=== PATIENT | female | born 1935 | race Two or more races ===

== ENCOUNTER 2019-10-21 19:28 | Inpatient (IN) | payer SELFPAY ==
[~2019-10-21] VITALS: Ht 162.6 cm; Wt 69.9 kg
[2019-10-21 21:40] LABS: BASO # 0.2 x10^3/uL (0.0-0.2); BASO % 2 % (0-3); EOS # 0.1 x10^3/uL (0.0-0.7); EOS % 1 % (0-3); LYMPH # 1.7 x10^3/uL (1.0-4.8); LYMPH % 19 % (24-48); MEAN CORPUSCULAR HEMOGLOBIN 23 pg (25-35); MEAN CORPUSCULAR HGB CONC 30 g/dL (31-37); MEAN CORPUSCULAR VOLUME 78 fL (79-100); MONO # 0.7 x10^3/uL (0.0-1.1); MONO % 7 % (0-9); NEUT # 6.6 x10^3/uL (1.8-7.7); NEUT % 71 % (31-73); PLATELET COUNT 495 x10^3/uL (140-400); RED BLOOD COUNT 1.96 x10^6/uL (3.50-5.40); RED CELL DISTRIBUTION WIDTH 22.6 % (11.5-14.5); WHITE BLOOD COUNT 9.3 x10^3/uL (4.0-11.0)
[2019-10-21 21:44] LABS: HEMATOCRIT 15.2 % (36.0-47.0); HEMOGLOBIN 4.6 g/dL (12.0-15.5)
[2019-10-21 21:48] LABS: CREATININE 1.8 mg/dL (0.6-1.0); GFR 26.7; POTASSIUM 5.8 mmol/L (3.5-5.1)
[2019-10-21 21:56] LABS: ALBUMIN 2.7 g/dL (3.4-5.0); TOTAL BILIRUBIN 0.5 mg/dL (0.2-1.0); TOTAL PROTEIN 5.4 g/dL (6.4-8.2)
[2019-10-21] MEDS ORDERED: IV NORMAL SALINE 1000ML BAG 1,000 ML IV SCH (22:15)
[2019-10-21] MEDS ORDERED: DEXTROSE 50% 25 GM / 50ML DISP.SYRIN. IV ONE (22:30)
[2019-10-21] MEDS ORDERED: SODIUM BICARB ADULT 8.4% 50 MEQ/50 ML DISP.SYRIN. IV ONE (22:30)
[2019-10-21] MEDS ORDERED: INSULIN REGULAR 100 UNIT/ML 3ML VIAL. IV ONE (22:30)
[2019-10-21] MEDS ORDERED: CALCIUM GLUCONATE 1,000 MG/10 ML VIAL. IVP ONE (22:30)
[2019-10-21 23:15] VITALS: BP 74/52
[2019-10-21 23:21] LABS: ANISOCYTOSIS MOD; HYPOCHROMIA SLIGHT; OVALOCYTES OCC; PLT ESTIMATE INCREASED (ADEQUATE); POLYCHROMASIA MOD; SCHISTOCYTES OCC
[2019-10-21 23:22] LABS: BURR CELLS OCC
[2019-10-21] MEDS ORDERED: PANTOPRAZOLE IV PUSH 40 MG VIAL. IVP ONE (23:30)
[2019-10-21] MEDS ORDERED: MORPHINE SULFATE 2 MG/ML VIAL. ONE (23:39)
[2019-10-21 23:48] LABS: FECAL OB PT NEGATIVE (NEG)
[2019-10-21] MEDS ORDERED: MORPHINE SULFATE 2 MG/ML VIAL. IV ONE (23:55)
[2019-10-22] VITALS (33 sets, daily range): BP systolic 81–129; BP diastolic 42–72
--- NOTE | 2019-10-22 00:27 | PHYS DOC ---
Past Medical History Past Medical History: Hypertension Additional Past Medical Histor: pacemaker Additional Past Surgical Histo: pacemaker last year Alcohol Use: None Adult General Chief Complaint Chief Complaint: ANEMIA HPI HPI Patient presents to the ER with complaints of "anemia." Patient has a history of upper GI bleed with ulceration in [place]. Patient denied any acute complaints aside from generalized weakness. She denies abdominal pain on exam. Patient states she has had some dark stools. Attempted to get more information from patient however she was unable to talk loud enough for the interpretor to h elp over the blue phone. Patient has had no nausea or vomiting. Discussed with family via medication care manager phone - they reiterated ulcer and GI bleed. Limited ROS given non-participation. All other ROS negative unless documented in HPI Review of Systems Review of Systems See Above Current Medications Current Medications Current Medications Medications (Trade) Dose Ordered Sig/Annabella Start Time Stop Time Status Last Admin Dose Admin Calcium Gluconate (Calcium Gluconate) 1,000 mg 1X ONCE 10/21/19 22:30 10/21/19 22:31 DC Dextrose (Dextrose 50%-Water Syringe) 25 gm 1X ONCE 10/21/19 22:30 10/21/19 22:31 DC Insulin Human Regular (HumuLIN R VIAL) 10 unit 1X ONCE 10/21/19 22:30 10/21/19 22:31 DC Morphine Sulfate (Morphine Sulfate) 2 mg STK-MED ONCE 10/21/19 23:39 10/21/19 23:40 DC Pantoprazole Sodium (PROTONIX VIAL for IV PUSH) 80 mg 1X ONCE 10/21/19 23:30 10/21/19 23:34 DC 10/21/19 00:15 80 MG Pantoprazole Sodium 80 mg/ Sodium Chloride 100 ml @ 10 mls/hr Q10H 10/21/19 23:30 10/22/19 00:30 10 MLS/HR Sodium Bicarbonate (Sodium Bicarb Adult 8.4% Syr) 50 meq 1X ONCE 10/21/19 22:30 10/21/19 22:31 DC Sodium Chloride 1,000 ml @ 1,000 mls/hr Q1H 10/21/19 22:15 10/21/19 23:14 DC Allergies Allergies Allergies Coded Allergies Type Severity Reaction Last Updated Verified No Known Drug Allergies 10/21/19 No Physical Exam Physical Exam See Above Constitutional: Decreased LOC, mild distress[] HENT: Normocephalic, atraumatic, bilateral external ears normal, oropharynx m oist, no oral exudates, nose normal. [] Eyes: PERRLA, EOMI, conjunctiva normal, no discharge. [] Cardiovascular: irregular/irregular Lungs & Thorax: Bilateral breath sounds clear to auscultation [] Abdomen: Bowel sounds normal, soft, no tenderness, no masses, no pulsatile masses. [] Skin: Warm, dry, no erythema, no rash, pale Back: No tenderness, no CVA tenderness. [] Extremities: No tenderness, no edema. [] Neurologic: Alert and oriented X 3, no focal deficits noted. [] Psychologic: Affect normal, judgement normal, mood normal. [] Current Patient Data Vital Signs Vital Signs Date Time Temp Pulse Resp B/P (MAP) Pulse Ox O2 Delivery O2 Flow Rate FiO2 10/21/19 22:00 97.7 48 16 78/56 (63) 96 Room Air 97.7 Lab Values Laboratory Tests Test 10/21/19 21:30 10/21/19 23:30 White Blood Count 9.3 x10^3/uL (4.0-11.0) Red Blood Count 1.96 x10^6/uL (3.50-5.40) L Hemoglobin 4.6 g/dL (12.0-15.5) *L Hematocrit 15.2 % (36.0-47.0) *L Mean Corpuscular Volume 78 fL (79-100) L Mean Corpuscular Hemoglobin 23 pg (25-35) L Mean Corpuscular Hemoglobin Concent 30 g/dL (31-37) L Red Cell Distribution Width 22.6 % (11.5-14.5) H Platelet Count 495 x10^3/uL (140-400) H Neutrophils (%) (Auto) 71 % (31-73) Lymphocytes (%) (Auto) 19 % (24-48) L Monocytes (%) (Auto) 7 % (0-9) Eosinophils (%) (Auto) 1 % (0-3) Basophils (%) (Auto) 2 % (0-3) Neutrophils # (Auto) 6.6 x10^3/uL (1.8-7.7) Lymphocytes # (Auto) 1.7 x10^3/uL (1.0-4.8) Monocytes # (Auto) 0.7 x10^3/uL (0.0-1.1) Eosinophils # (Auto) 0.1 x10^3/uL (0.0-0.7) Basophils # (Auto) 0.2 x10^3/uL (0.0-0.2) Platelet Estimate Increased (ADEQUATE) Polychromasia Mod Hypochromasia Slight Anisocytosis Mod Ovalocytes Occ Mary Cells Occ Schistocytes Occ Sodium Level 132 mmol/L (136-145) L Potassium Level 5.8 mmol/L (3.5-5.1) H Chloride Level 102 mmol/L (98-107) Carbon Dioxide Level 15 mmol/L (21-32) L Anion Gap 15 (6-14) H Blood Urea Nitrogen 46 mg/dL (7-20) H Creatinine 1.8 mg/dL (0.6-1.0) H Estimated GFR (Cockcroft-Gault) 26.7 BUN/Creatinine Ratio 26 (6-20) H Glucose Level 129 mg/dL (70-99) H Calcium Level 8.0 mg/dL (8.5-10.1) L Total Bilirubin 0.5 mg/dL (0.2-1.0) Aspartate Amino Transferase (AST) 28 U/L (15-37) Alanine Aminotransferase (ALT) 13 U/L (14-59) L Alkaline Phosphatase 63 U/L (46-116) Total Protein 5.4 g/dL (6.4-8.2) L Albumin 2.7 g/dL (3.4-5.0) L Albumin/Globulin Ratio 1.0 (1.0-1.7) Stool Occult Blood Negative (NEG) Laboratory Tests 10/21/19 21:30 Laboratory Tests 10/21/19 21:30 EKG EKG EKG reviewed - 2158 afib, hear rate 71, no stemi[] Radiology/Procedures Radiology/Procedures [facility] [address] [place] [address] IMAGING REPORT Signed PATIENT: TIM CALDERON ACCOUNT: [id number] : 1935 LOCATION: [facility] ICU AGE: 84 SEX: F EXAM STATUS: ADM IN ORD. PHYSICIAN: TAMIE WARE MD REASON: Abdominal pain PROCEDURE: CT ABDOMEN PELVIS WO CONTRAST CT abdomen pelvis without contrast. HISTORY: Abdominal pain CT scan the abdomen pelvis was done without contrast. There is artifacts as the arms are in the [id number]. There is mild atelectasis in the left lower lobe. There is a trace of left pleural effusion. Right lung base is clear. Adrenal glands are normal. Spleen is unremarkable. A liver lesion is not identified. There are right renal cysts. There is a catheter in the bladder. A ureteral calculus is not identified. Appendix is normal. There is atherosclerotic change in the aorta without an aneurysm. There is no small bowel obstruction. Uterus and ovaries are unremarkable. There is mild stool in the colon. There is mild diverticulosis without an acute diverticulitis. There are degenerative change in the lumbar spine. There is severe spinal stenosis at L4-5 and L3-4. There is a right femoral vein catheter extending to the common iliac vein on the right. IMPRESSION: 1. Mild atelectasis left lung base with a trace of pleural effusion on the left. 2. Renal cysts. 3. Normal appendix. 4. No bowel obstruction. 5. Spinal stenosis. 6. Right femoral vein catheter. RS Compliance Statement: One or more of the following individualized dose reduction techniques were utilized for this examination: 1. Automated exposure control 2. Adjustment of the mA and/or kV according to patient size 3. Use of iterative reconstruction technique Electronically signed by: Jhoan Che MD (10/22/2019 2:02 AM) [id number] DICTATED and SIGNED BY: JHOAN CHE MD DATE: 10/22/19201 Course & Med Decision Making Course & Med Decision Making Pertinent Labs and Imaging studies reviewed. (See chart for details) []Patient presents to the ER with complaints of "anemia." Patient has a history of upper GI bleed with ulceration in [place]. Patient denied any acute complaints aside from generalized weakness. She denies abdominal pain on exam. Patient states she has had some dark stools. Attempted to get more information from patient however she was unable to talk loud enough for the interpretor to help over the blue phone. Patient has had no nausea or vomiting. Discussed with family via medication care manager phone - they reiterated ulcer and GI bleed. Limited ROS given non-participation. Patient was brought back and assessed per nursing with hypotension and difficulty obtaining BP. Labs obtained revealing anemia 4.6, hyperkalemia, 5.8, ELIZABETH. Patient was transferred to room 1 with central line placement given hypotension and plan for blood product transfusion. See central line placement section Patient was type and crossed with transfusion of at least 2 units of pRBCS Patient was provided with IVF Discussed with family findings and plan for central line/blood - consents were obtained Patient BP improved with systolic bp in the 100's at this time after reassessment GIven hyperkalemia, patient was provided with calcium gluconate, bicarb, insulin and dextros Plan repeat labs at this time prior to admit Patient will be admitted to the ICU with GI consult and remain NPO Lactic acidosis 2/2 hypotension Central Line Placement by me: Patient consented, sterilely draped, full prep, gown, glove, mask, time out performed. Anesthesia: 1% lidocaine locally Location: RIght IJ attempted without ability to thread, given acute hypotension and need for line placement - right groin prepped with line inserted Device: Multiple lumen Technique: Seldinger technique. Secured with suture. Results: Venous return from all ports with easy saline flush. No complications. Guide wire retrieved and disposed of. ED Ultrasound: Central line placed by me using concurrent ultrasound guidance. Dragon Disclaimer Dragon Disclaimer This electronic medical record was generated, in whole or in part, using a voice recognition dictation system. Critical Care Time Critical care time was 75 minutes exclusive of procedures. Departure Departure Impression: Primary Impression: Anemia Additional Impressions: Hyperkalemia ELIZABETH (acute kidney injury) Lactic acid acidosis Hypotension Disposition: ADMITTED INPATIENT Admitting Physician: HIMChrista Condition: GUARDED Referrals: NO PCP (PCP) Problem Qualifiers Primary Impression: Anemia Anemia type: unspecified type Qualified Codes: D64.9 - Anemia, unspecified Additional Impressions: Hypotension Hypotension type: hypotension due to hypovolemia Qualified Codes: I95.89 - Other hypotension; E86.1 - Hypovolemia TAMIE WARE MD Oct 22, 2019 00:27
[2019-10-22] MEDS: PANTOPRAZOLE SODIUM IV DRIP 80 MG in IV NORMAL SALINE 100ML 100 ML IV SCH ×3 (00:30→23:44)
[2019-10-22] MEDS ORDERED: MORPHINE SULFATE 2 MG/ML VIAL. IV PRN (00:45)
[2019-10-22] MEDS ORDERED: ONDANSETRON PF 4 MG/2 ML VIAL. IV PRN (00:45)
[2019-10-22] MEDS ORDERED: FUROSEMIDE 20 MG/2 ML VIAL. IVP ONE (00:45)
[2019-10-22] MEDS ORDERED: IV NORMAL SALINE 1000ML BAG 1,000 ML IV ONE (00:45)
[2019-10-22] MEDS ORDERED: FUROSEMIDE 20 MG/2 ML VIAL. ONE (00:46)
[2019-10-22 00:51] LABS: BASO # 0.1 x10^3/uL (0.0-0.2); BASO % 1 % (0-3); EOS % 0 % (0-3); LYMPH # 1.5 x10^3/uL (1.0-4.8); LYMPH % 12 % (24-48); MEAN CORPUSCULAR HEMOGLOBIN 24 pg (25-35); MEAN CORPUSCULAR HGB CONC 31 g/dL (31-37); MEAN CORPUSCULAR VOLUME 78 fL (79-100); MONO # 1.1 x10^3/uL (0.0-1.1); MONO % 9 % (0-9); NEUT # 9.3 x10^3/uL (1.8-7.7); NEUT % 78 % (31-73); PLATELET COUNT 415 x10^3/uL (140-400); RED BLOOD COUNT 2.58 x10^6/uL (3.50-5.40); RED CELL DISTRIBUTION WIDTH 19.5 % (11.5-14.5); WHITE BLOOD COUNT 11.9 x10^3/uL (4.0-11.0)
[2019-10-22 00:52] LABS: HEMATOCRIT 20.2 % (36.0-47.0); HEMOGLOBIN 6.3 g/dL (12.0-15.5)
[2019-10-22 00:57] LABS: CALCIUM 7.8 mg/dL (8.5-10.1); CREATININE 1.8 mg/dL (0.6-1.0); GFR 26.7
[2019-10-22 01:02] LABS: ALBUMIN 2.6 g/dL (3.4-5.0); ALBUMIN/GLOBULIN RATIO 1.1 (1.0-1.7); TOTAL BILIRUBIN 0.4 mg/dL (0.2-1.0)
[2019-10-22 01:30] LABS: POTASSIUM 4.8 mmol/L (3.5-5.1)
--- NOTE | 2019-10-22 02:05 | RAD ---
CT abdomen pelvis without contrast. HISTORY: Abdominal pain CT scan the abdomen pelvis was done without contrast. There is artifacts as the arms are in the [id number]. There is mild atelectasis in the left lower lobe. There is a trace of left pleural effusion. Right lung base is clear. Adrenal glands are normal. Spleen is unremarkable. A liver lesion is not identified. There are right renal cysts. There is a catheter in the bladder. A ureteral calculus is not identified. Appendix is normal. There is atherosclerotic change in the aorta without an aneurysm. There is no small bowel obstruction. Uterus and ovaries are unremarkable. There is mild stool in the colon. There is mild diverticulosis without an acute diverticulitis. There are degenerative change in the lumbar spine. There is severe spinal stenosis at L4-5 and L3-4. There is a right femoral vein catheter extending to the common iliac vein on the right. IMPRESSION: 1. Mild atelectasis left lung base with a trace of pleural effusion on the left. 2. Renal cysts. 3. Normal appendix. 4. No bowel obstruction. 5. Spinal stenosis. 6. Right femoral vein catheter. PQRS Compliance Statement: One or more of the following individualized dose reduction techniques were utilized for this examination: 1. Automated exposure control 2. Adjustment of the mA and/or kV according to patient size 3. Use of iterative reconstruction technique Electronically signed by: Jhoan Rao MD (10/22/2019 2:02 AM) [facility]
--- NOTE | 2019-10-22 03:00 | NUR ---
Patient admitted to room 108 from ER via cart accompanied by ER nurse at 0140. Patient moved from cart to ICU bed by RNs. Monitor placed. Patient alert with confusion per daughter. Patient and daughter are brazilian speaking and answers were obtained for admission questions via language line. Afib noted on monitor. Patient on RA. Lang intact and to d/d. Right femoral TL central line in place with 2nd unit of blood and protonix gtt infusing. Daughter answered most of the admission questions. Patient is from [place] so that is where her pharmacy is. Daughter to bring in medications. No c/o pain or discomfort at this time. Will monitor.
[2019-10-22 05:12] LABS: HEMATOCRIT 26.4 % (36.0-47.0); HEMOGLOBIN 8.5 g/dL (12.0-15.5); RED BLOOD COUNT 3.35 x10^6/uL (3.50-5.40); RED CELL DISTRIBUTION WIDTH 18.2 % (11.5-14.5); WHITE BLOOD COUNT 12.2 x10^3/uL (4.0-11.0)
--- NOTE | 2019-10-22 07:03 | EKG ---
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
--- NOTE | 2019-10-22 07:04 | EKG ---
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
--- NOTE | 2019-10-22 07:30 | NUR ---
Patient pushed call light and when I used the marine animal trainer phone to determine what she needed she informed her daughter that she was going to take all the lines off of her and that she was leaving. I questioned if she was leaving without the doctor's order for discharge and she stated yes (per daughter through marine animal trainer phone). I informed daughter that she would need to sign a form saying she was leaving against medical advise and after discussing what that meant the patient decided she would stay to see the doctors. Explained to daughter and patient through the marine animal trainer phone that the medication going through her IV is the medication for the GI bleed. Patient agreement with plan.
--- NOTE | 2019-10-22 09:19 | PDOC2 ---
GI CONSULT Reason For Consult: profound anemia, possible GI bleeding HPI: HPI: 84 y/o Portuguese-speaking female in ICU. 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 Pt falls asleep holding phone, so history obtained from daughter who is also Portuguese-speaking. Ill x 1 week w/ stomach pain, vomiting, and weakness. Labs noted Hgb 4.6 (now 8.5 s/p transfusions), MCV 78, RDW 22.6, lactic acid 4.6 (now 2.8), BUN 46, Cr 1.8. Daughter says stools have looked black. Additionally reports decreased appetite and weight loss. H/o anemia requiring blood transfusion in [place] in 07/2019. EGD at that time w/ ulcer. Daughter says no longer taking anything for ulcer, but later says she takes omeprazole for pain. Denies use of blood thinners. Reviewed medications w/ nurse - include Pradaxa. Family apparently considered leaving AMA. PMH: PMH: limited w/ language barrier - A Fib, HTN, HLD, ?CKD, pacemaker, cholecystectomy FH: Family History: No pertinent hx Social History: Smoke: No ROS: Difficult to obtain, per HPI. Vitals: Vitals: Vital Signs Date Time Temp Pulse Resp B/P (MAP) Pulse Ox O2 Delivery O2 Flow Rate FiO2 10/22/19 06:00 92 16 102/55 (71) 100 Room Air 10/22/19 04:00 97.6 97.6 Labs: Labs: Laboratory Tests Test 10/21/19 21:30 10/21/19 23:30 10/22/19 00:35 10/22/19 04:00 White Blood Count 9.3 x10^3/uL (4.0-11.0) 11.9 x10^3/uL (4.0-11.0) 12.2 x10^3/uL (4.0-11.0) Red Blood Count 1.96 x10^6/uL (3.50-5.40) 2.58 x10^6/uL (3.50-5.40) 3.35 x10^6/uL (3.50-5.40) Hemoglobin 4.6 g/dL (12.0-15.5) 6.3 g/dL (12.0-15.5) 8.5 g/dL (12.0-15.5) Hematocrit 15.2 % (36.0-47.0) 20.2 % (36.0-47.0) 26.4 % (36.0-47.0) Mean Corpuscular Volume 78 fL (79-100) 78 fL (79-100) 79 fL (79-100) Mean Corpuscular Hemoglobin 23 pg (25-35) 24 pg (25-35) 25 pg (25-35) Mean Corpuscular Hemoglobin Concent 30 g/dL (31-37) 31 g/dL (31-37) 32 g/dL (31-37) Red Cell Distribution Width 22.6 % (11.5-14.5) 19.5 % (11.5-14.5) 18.2 % (11.5-14.5) Platelet Count 495 x10^3/uL (140-400) 415 x10^3/uL (140-400) 396 x10^3/uL (140-400) Neutrophils (%) (Auto) 71 % (31-73) 78 % (31-73) Lymphocytes (%) (Auto) 19 % (24-48) 12 % (24-48) Monocytes (%) (Auto) 7 % (0-9) 9 % (0-9) Eosinophils (%) (Auto) 1 % (0-3) 0 % (0-3) Basophils (%) (Auto) 2 % (0-3) 1 % (0-3) Neutrophils # (Auto) 6.6 x10^3/uL (1.8-7.7) 9.3 x10^3/uL (1.8-7.7) Lymphocytes # (Auto) 1.7 x10^3/uL (1.0-4.8) 1.5 x10^3/uL (1.0-4.8) Monocytes # (Auto) 0.7 x10^3/uL (0.0-1.1) 1.1 x10^3/uL (0.0-1.1) Eosinophils # (Auto) 0.1 x10^3/uL (0.0-0.7) 0.0 x10^3/uL (0.0-0.7) Basophils # (Auto) 0.2 x10^3/uL (0.0-0.2) 0.1 x10^3/uL (0.0-0.2) Platelet Estimate Increased (ADEQUATE) Polychromasia Mod Hypochromasia Slight Anisocytosis Mod Ovalocytes Occ Mary Cells Occ Schistocytes Occ Sodium Level 132 mmol/L (136-145) 136 mmol/L (136-145) Potassium Level 5.8 mmol/L (3.5-5.1) 4.8 mmol/L (3.5-5.1) Chloride Level 102 mmol/L (98-107) 105 mmol/L (98-107) Carbon Dioxide Level 15 mmol/L (21-32) 16 mmol/L (21-32) Anion Gap 15 (6-14) 15 (6-14) Blood Urea Nitrogen 46 mg/dL (7-20) 45 mg/dL (7-20) Creatinine 1.8 mg/dL (0.6-1.0) 1.8 mg/dL (0.6-1.0) Estimated GFR (Cockcroft-Gault) 26.7 26.7 BUN/Creatinine Ratio 26 (6-20) 25 (6-20) Glucose Level 129 mg/dL (70-99) 77 mg/dL (70-99) Calcium Level 8.0 mg/dL (8.5-10.1) 7.8 mg/dL (8.5-10.1) Total Bilirubin 0.5 mg/dL (0.2-1.0) 0.4 mg/dL (0.2-1.0) Aspartate Amino Transf (AST/SGOT) 28 U/L (15-37) 15 U/L (15-37) Alanine Aminotransferase (ALT/SGPT) 13 U/L (14-59) 13 U/L (14-59) Alkaline Phosphatase 63 U/L (46-116) 63 U/L (46-116) Total Protein 5.4 g/dL (6.4-8.2) 5.0 g/dL (6.4-8.2) Albumin 2.7 g/dL (3.4-5.0) 2.6 g/dL (3.4-5.0) Albumin/Globulin Ratio 1.0 (1.0-1.7) 1.1 (1.0-1.7) Stool Occult Blood Negative (NEG) Lactic Acid Level 4.6 mmol/L (0.4-2.0) 2.8 mmol/L (0.4-2.0) Allergies: Coded Allergies: No Known Drug Allergies (Unverified , 10/21/19) Medications: Current Medications Medications (Trade) Dose Ordered Sig/Annabella Route PRN Reason Start Time Stop Time Status Last Admin Dose Admin Calcium Gluconate (Calcium Gluconate) 1,000 mg 1X ONCE IVP 10/21/19 22:30 10/21/19 22:31 DC 10/21/19 22:40 Sodium Bicarbonate (Sodium Bicarb Adult 8.4% Syr) 50 meq 1X ONCE IV 10/21/19 22:30 10/21/19 22:31 DC 10/21/19 22:40 Dextrose (Dextrose 50%-Water Syringe) 25 gm 1X ONCE IV 10/21/19 22:30 10/21/19 22:31 DC 10/21/19 22:40 Insulin Human Regular (HumuLIN R VIAL) 10 unit 1X ONCE IV 10/21/19 22:30 10/21/19 22:31 DC 10/21/19 22:40 Sodium Chloride 1,000 ml @ 1,000 mls/hr Q1H IV 10/21/19 22:15 10/21/19 23:14 DC 10/21/19 22:40 Pantoprazole Sodium (PROTONIX VIAL for IV PUSH) 80 mg 1X ONCE IVP 10/21/19 23:30 10/21/19 23:34 DC 10/21/19 00:15 Pantoprazole Sodium 80 mg/ Sodium Chloride 100 ml @ 10 mls/hr Q10H IV 10/21/19 23:30 10/22/19 09:01 Morphine Sulfate (Morphine Sulfate) 1 mg 1X ONCE IV 10/21/19 23:55 10/21/19 23:56 DC 10/21/19 00:00 Furosemide (Lasix) 20 mg 1X ONCE IVP 10/22/19 00:45 10/22/19 00:46 DC 10/22/19 00:45 Imaging: Imaging: CT A/P w/o contrast IMPRESSION: 1. Mild atelectasis left lung base with a trace of pleural effusion on the left. 2. Renal cysts. 3. Normal appendix. 4. No bowel obstruction. 5. Spinal stenosis. 6. Right femoral vein catheter. PE: GEN: NAD HEENT: Atraumatic, PERRL LUNGS: CTAB anteriorly HEART: irregularly irregular ABD: NABS, S/ND/NT EXTREMITY: No edema SKIN: No rashes, no jaundice NEURO/PSYCH: Portuguese-speaking, falls asleep w/ [employer] phone A/P: A/P: Weakness, abd pain, vomiting, black stools Anemia, Hemoccult negative Leukocytosis, lactic acidosis, ?ELIZABETH/CKD H/o ulcer - EGD in [place] in 07/2019, daughter mentions omeprazole A Fib - ?on Pradaxa S/p cholecystectomy -- Reviewed w/ Dr. Whitmore - will ask cardiology to comment re: A Fib. Recent EGD in [place] w/ ulcer per daughter. No plans to repeat EGD at this time but would continue PPI, monitor labs. ?clear liquids later if stable LAKISHA TRAYLOR Oct 22, 2019 09:19
[2019-10-22] MEDS ORDERED: DIGOXIN IV 500 MCG/2 ML AMPUL. IV ONE (09:30)
--- NOTE | 2019-10-22 10:30 | PDOC2 ---
CARDIAC CONSULT DATE OF CONSULT Date of Consult DATE: 10/22/19 TIME: 10:07 REASON FOR CONSULT Reason for Consult: AFIB, anemia, hx of ulcer REFERRING PHYSICIAN Referring Physician: Teofilo SOURCE Source: Caregiver, Chart review, Patient HISTORY OF PRESENT ILLNESS HISTORY OF PRESENT ILLNESS This is an 84 yo female admitted for complains of abdominal pain and weakness. Pt does not speak Englinsh and family members speaks limited Amharic. Noting her medication that was brought, she takes pradaxa and verapamil for AFIB. She also takes losartan. Looking at her pill bottle it appears she may have been rivaroxiban in the past. It is unclear if end up taking both. She is a poor historian. Denies any chest pain and no SOA but complains of abdominal pain and further revealed significant anemia at 4.6 Hgb requiring 2U PRBC. She does have hx of GI bleed and PUD unclear where. Positive for vomiting but does have black stools. Denies any past hx of CAD, CVA. 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 PAST MEDICAL HISTORY Cardiovascular: AFIB, HTN, Hyperlipidemia Pulmonary: No pertinent hx GI: GERD, GI bleed, Peptic Ulcer disease Heme/Onc: Anemia NOS Musculoskeletal: Osteoarthritis PAST SURGICAL HISTORY Past Surgical History: Pacemaker FAMILY HISTORY Family History: Family History Unknown SOCIAL HISTORY Smoke: No ALCOHOL: none Drugs: None Lives: with Family CURRENT MEDICATIONS CURRENT MEDICATIONS Current Medications Medications (Trade) Dose Ordered Sig/Annabella Route PRN Reason Start Time Stop Time Status Last Admin Dose Admin Calcium Gluconate (Calcium Gluconate) 1,000 mg 1X ONCE IVP 10/21/19 22:30 10/21/19 22:31 DC 10/21/19 22:40 Sodium Bicarbonate (Sodium Bicarb Adult 8.4% Syr) 50 meq 1X ONCE IV 10/21/19 22:30 10/21/19 22:31 DC 10/21/19 22:40 Dextrose (Dextrose 50%-Water Syringe) 25 gm 1X ONCE IV 10/21/19 22:30 10/21/19 22:31 DC 10/21/19 22:40 Insulin Human Regular (HumuLIN R VIAL) 10 unit 1X ONCE IV 10/21/19 22:30 10/21/19 22:31 DC 10/21/19 22:40 Sodium Chloride 1,000 ml @ 1,000 mls/hr Q1H IV 10/21/19 22:15 10/21/19 23:14 DC 10/21/19 22:40 Pantoprazole Sodium (PROTONIX VIAL for IV PUSH) 80 mg 1X ONCE IVP 10/21/19 23:30 10/21/19 23:34 DC 10/21/19 00:15 Pantoprazole Sodium 80 mg/ Sodium Chloride 100 ml @ 10 mls/hr Q10H IV 10/21/19 23:30 10/22/19 09:01 Morphine Sulfate (Morphine Sulfate) 1 mg 1X ONCE IV 10/21/19 23:55 10/21/19 23:56 DC 10/21/19 00:00 Furosemide (Lasix) 20 mg 1X ONCE IVP 10/22/19 00:45 10/22/19 00:46 DC 10/22/19 00:45 Sodium Chloride 1,000 ml @ 0 mls/hr 1X ONCE IV 10/22/19 00:45 10/22/19 00:46 DC 10/22/19 09:52 Digoxin (Lanoxin) 250 mcg 1X ONCE IV 10/22/19 09:30 10/22/19 09:31 DC 10/22/19 09:52 ALLERGIES ALLERGIES: Coded Allergies: No Known Drug Allergies (Unverified , 10/21/19) ROS Review of System limited, language barrier, poor historian PHYSICAL EXAM General: Alert, Oriented X3, Cooperative, No acute distress HEENT: Atraumatic, Mucous membr. moist/pink Lungs: Other (diminished bases) Heart: Other (AFIB) Abdomen: Soft, No tenderness Extremities: No cyanosis, No edema Skin: No breakdown, No significant lesion Neuro: Normal speech, Sensation intact Psych/Mental Status: Mental status NL, Mood NL MUSCULOSKELETAL: Osteoarthritic changes both hands VITALS/I&O VITALS/I&O: Vital Signs Date Time Temp Pulse Resp B/P (MAP) Pulse Ox O2 Delivery O2 Flow Rate FiO2 10/22/19 10:00 105 16 95/66 (76) 100 Room Air 10/22/19 07:00 98.1 98.1 I & O 10/21/19 10/21/19 10/22/19 15:00 23:00 07:00 Intake Total 350 ml 2146 ml Output Total 810 ml Balance 350 ml 1336 ml LABS Lab: Laboratory Tests Test 10/21/19 21:30 10/21/19 23:30 10/22/19 00:35 10/22/19 04:00 White Blood Count 9.3 x10^3/uL (4.0-11.0) 11.9 x10^3/uL (4.0-11.0) H 12.2 x10^3/uL (4.0-11.0) H Red Blood Count 1.96 x10^6/uL (3.50-5.40) L 2.58 x10^6/uL (3.50-5.40) L 3.35 x10^6/uL (3.50-5.40) L Hemoglobin 4.6 g/dL (12.0-15.5) *L 6.3 g/dL (12.0-15.5) 8.5 g/dL (12.0-15.5) L Hematocrit 15.2 % (36.0-47.0) *L 20.2 % (36.0-47.0) *L 26.4 % (36.0-47.0) L Mean Corpuscular Volume 78 fL (79-100) L 78 fL (79-100) L 79 fL (79-100) Mean Corpuscular Hemoglobin 23 pg (25-35) L 24 pg (25-35) L 25 pg (25-35) Mean Corpuscular Hemoglobin Concent 30 g/dL (31-37) L 31 g/dL (31-37) 32 g/dL (31-37) Red Cell Distribution Width 22.6 % (11.5-14.5) H 19.5 % (11.5-14.5) H 18.2 % (11.5-14.5) H Platelet Count 495 x10^3/uL (140-400) H 415 x10^3/uL (140-400) H 396 x10^3/uL (140-400) Neutrophils (%) (Auto) 71 % (31-73) 78 % (31-73) H Lymphocytes (%) (Auto) 19 % (24-48) L 12 % (24-48) L Monocytes (%) (Auto) 7 % (0-9) 9 % (0-9) Eosinophils (%) (Auto) 1 % (0-3) 0 % (0-3) Basophils (%) (Auto) 2 % (0-3) 1 % (0-3) Neutrophils # (Auto) 6.6 x10^3/uL (1.8-7.7) 9.3 x10^3/uL (1.8-7.7) H Lymphocytes # (Auto) 1.7 x10^3/uL (1.0-4.8) 1.5 x10^3/uL (1.0-4.8) Monocytes # (Auto) 0.7 x10^3/uL (0.0-1.1) 1.1 x10^3/uL (0.0-1.1) Eosinophils # (Auto) 0.1 x10^3/uL (0.0-0.7) 0.0 x10^3/uL (0.0-0.7) Basophils # (Auto) 0.2 x10^3/uL (0.0-0.2) 0.1 x10^3/uL (0.0-0.2) Platelet Estimate Increased (ADEQUATE) Polychromasia Mod Hypochromasia Slight Anisocytosis Mod Ovalocytes Occ [place] Cells Occ Schistocytes Occ Sodium Level 132 mmol/L (136-145) L 136 mmol/L (136-145) Potassium Level 5.8 mmol/L (3.5-5.1) H 4.8 mmol/L (3.5-5.1) # Chloride Level 102 mmol/L (98-107) 105 mmol/L (98-107) Carbon Dioxide Level 15 mmol/L (21-32) L 16 mmol/L (21-32) L Anion Gap 15 (6-14) H 15 (6-14) H Blood Urea Nitrogen 46 mg/dL (7-20) H 45 mg/dL (7-20) H Creatinine 1.8 mg/dL (0.6-1.0) H 1.8 mg/dL (0.6-1.0) H Estimated GFR (Cockcroft-Gault) 26.7 26.7 BUN/Creatinine Ratio 26 (6-20) H 25 (6-20) H Glucose Level 129 mg/dL (70-99) H 77 mg/dL (70-99) Calcium Level 8.0 mg/dL (8.5-10.1) L 7.8 mg/dL (8.5-10.1) L Total Bilirubin 0.5 mg/dL (0.2-1.0) 0.4 mg/dL (0.2-1.0) Aspartate Amino Transferase (AST) 28 U/L (15-37) 15 U/L (15-37) Alanine Aminotransferase (ALT) 13 U/L (14-59) L 13 U/L (14-59) L Alkaline Phosphatase 63 U/L (46-116) 63 U/L (46-116) Total Protein 5.4 g/dL (6.4-8.2) L 5.0 g/dL (6.4-8.2) L Albumin 2.7 g/dL (3.4-5.0) L 2.6 g/dL (3.4-5.0) L Albumin/Globulin Ratio 1.0 (1.0-1.7) 1.1 (1.0-1.7) Stool Occult Blood Negative (NEG) Lactic Acid Level 4.6 mmol/L (0.4-2.0) *H 2.8 mmol/L (0.4-2.0) H Laboratory Tests 10/21/19 21:30 10/22/19 00:35 10/22/19 04:00 Laboratory Tests 10/21/19 21:30 10/22/19 00:35 ASSESSMENT/PLAN ASSESSMENT/PLAN 1. Acute GI bleed: hx of PUD with continued use of pradaxa 2. Severe anemia: initially 4.6 and better post 2U PRBC 3. AFIB: HR in the 100s Chronic vs paroxysmal. Presently AFIB 4. PPM in situ: unclear details, unknown brand 5. HTN: low marginal 6. HLP 7. ELIZABETH/hyperkalemia: due to volume depletion 8. Lactic acidosis: due to severe anemia and ELIZABETH. per PCP Recommendations 1. DC pradaxa. Not a candidate for anticoagulation 2. Follow GI recommendation. Rectal ASA when ok with GI if low suspicion for lower GI etiology 3. Could not ascertain if she takes pradaxa together with xarelto. Will verify, discussed with RN. 4. Hold BP med. Dig IV x1. She does take verapamil for rate control. Hold ARB. 5. Will interrogate device when brand is known. TTE 6. Supportive care. TORY APONTE DIETARY AIDE TEACHER Oct 22, 2019 10:30
--- NOTE | 2019-10-22 10:42 | PDOC1 ---
History and Physical Date of Admission: Date of Admission DATE: 10/22/19 TIME: 10:38 Chief Complaint: Problems: (1) Anemia (2) Upper GI bleed (3) Hypotension (4) Hyperkalemia (5) Lactic acid acidosis (6) ELIZABETH (acute kidney injury) Chief Complain: Dark stools Shortness of breath Weakness History of Present Illness: HPI: This is a middle-aged female who presented with dark stools We checked her hemoglobin was 4.6 She does have a previous history of GI bleed with peptic ulcer disease and [place] She also has a significant cardiac history with a permanent pacemaker and she is on anticoagulation for A. fib Rates her symptoms at 9 out of 10 Spell occurring for several days Describes her symptoms as irritating Moving makes it worse sitting still makes it better I discussed the case with the ER physician we've admitted the patient were transfusing her and we are consulting GI and cardiology Past Medical/Surgical History: PMH/PSH: Past Medical History: Hypertension Additional Past Medical Histor: pacemaker Additional Past Surgical Histo: pacemaker last year Alcohol Use: None Allergies: Allergies: Coded Allergies: No Known Drug Allergies (Unverified , 10/21/19) Family History: Family History: Coronary disease Social History: Social Hisoty: She does not drink smoke or take drugs Current Medications: Current Medications Current Medications Calcium Gluconate (Calcium Gluconate) 1,000 mg 1X ONCE IVP Last administered on 10/21/19at 22:40; Start 10/21/19 at 22:30; Stop 10/21/19 at 22:31; Status DC Sodium Bicarbonate (Sodium Bicarb Adult 8.4% Syr) 50 meq 1X ONCE IV Last administered on 10/21/19at 22:40; Start 10/21/19 at 22:30; Stop 10/21/19 at 22:31; Status DC Dextrose (Dextrose 50%-Water Syringe) 25 gm 1X ONCE IV Last administered on 10/21/19at 22:40; Start 10/21/19 at 22:30; Stop 10/21/19 at 22:31; Status DC Insulin Human Regular (HumuLIN R VIAL) 10 unit 1X ONCE IV Last administered on 10/21/19at 22:40; Start 10/21/19 at 22:30; Stop 10/21/19 at 22:31; Status DC Sodium Chloride 1,000 ml @ 1,000 mls/hr Q1H IV Last administered on 10/21/19at 22:40; Start 10/21/19 at 22:15; Stop 10/21/19 at 23:14; Status DC Pantoprazole Sodium (PROTONIX VIAL for IV PUSH) 80 mg 1X ONCE IVP Last administered on 10/21/19at 00:15; Start 10/21/19 at 23:30; Stop 10/21/19 at 23:34; Status DC Pantoprazole Sodium 80 mg/ Sodium Chloride 100 ml @ 10 mls/hr Q10H IV Last administered on 10/22/19at 09:01; Start 10/21/19 at 23:30 Morphine Sulfate (Morphine Sulfate) 2 mg STK-MED ONCE .ROUTE ; Start 10/21/19 at 23:39; Stop 10/21/19 at 23:40; Status DC Morphine Sulfate (Morphine Sulfate) 1 mg 1X ONCE IV Last administered on 10/21/19at 00:00; Start 10/21/19 at 23:55; Stop 10/21/19 at 23:56; Status DC Ondansetron HCl (Zofran) 4 mg PRN Q8HRS PRN IV NAUSEA/VOMITING; Start 10/22/19 at 00:45; Stop 10/23/19 at 00:44 Morphine Sulfate (Morphine Sulfate) 2 mg PRN Q2HR PRN IV PAIN; Start 10/22/19 at 00:45; Stop 10/23/19 at 00:44 Furosemide (Lasix) 20 mg 1X ONCE IVP Last administered on 10/22/19at 00:45; Start 10/22/19 at 00:45; Stop 10/22/19 at 00:46; Status DC Sodium Chloride 1,000 ml @ 0 mls/hr 1X ONCE IV Last administered on 10/22/19at 09:52; Start 10/22/19 at 00:45; Stop 10/22/19 at 00:46; Status DC Furosemide (Lasix) 20 mg STK-MED ONCE .ROUTE ; Start 10/22/19 at 00:46; Stop 10/22/19 at 00:46; Status DC Digoxin (Lanoxin) 250 mcg 1X ONCE IV Last administered on 10/22/19at 09:52; Start 10/22/19 at 09:30; Stop 10/22/19 at 09:31; Status DC ROS: Review of Systems Review of System REVIEW OF SYSTEMS: GENERAL: Complains of weakness SKIN: No bruising, hair changes or rashes. EYES: No blurred, double or loss of vision. NOSE AND THROAT: No history of nosebleeds, hoarseness or sore throat. HEART: No history of palpitations, chest pain or shortness of breath on exertion. LUNGS: Denies cough, hemoptysis, wheezing or shortness of breath. GASTROINTESTINAL: Complains of dark stools and nausea GENITOURINARY: No history of frequency, urgency, hesitancy or nocturia. NEUROLOGIC: Denies history of numbness, tingling, or tremor. PSYCHIATRIC: No history of panic, anxiety or depression. ENDOCRINE: No history of heat or cold intolerance, polyuria or polydipsia. EXTREMITIES: Denies joint pain, pain on walking or stiffness. Physical Exam: Vital Signs: Vital Signs Date Time Temp Pulse Resp B/P (MAP) Pulse Ox O2 Delivery O2 Flow Rate FiO2 10/22/19 10:00 105 16 95/66 (76) 100 Room Air 10/22/19 07:00 98.1 98.1 Physcial Exam: GEN: No apparent distress resting in the ICU HEENT: Normal cephalic, atraumatic, external auditory canals are patent EYES: Extraocular muscles are intact, pupil are equally round and reactive to light and accommodation MUSCULOSKELETAL: Well developed , well nourished, good range of motion ENDOCRINE: No thyromegaly was palpated LYMPHATICS: No cervical chain or axillary nodes were noted HEMATOPOIETIC: No bruising NECK: Supple, no JVD, no thyromegaly was noted LUNGS: Clear to auscultation in all lung jaramillo without rhonchi or wheezing HEART: Irregular S1-S2 at 100 bpm ABDOMEN: Soft, nontender. Positive bowel sounds, no organomegaly, normal bowel sounds EXTREMITIES: Without clubbing, cyanosis, or edema. Pedal pulses intact. Negative Homans sign NEUROLOGIC: Normal speech and tone. A&O x 3, moves all extremities, no obvious focal deficits PSYCHIATRIC: Normal affect, normal mood. Stable SKIN: Somewhat pale but no obvious jaundice VASCULAR: Good capillary refill, neurovascular bundle appears to be intact Labs: Labs: Laboratory Tests Test 10/21/19 21:30 10/21/19 23:30 10/22/19 00:35 10/22/19 04:00 White Blood Count 9.3 x10^3/uL (4.0-11.0) 11.9 x10^3/uL (4.0-11.0) 12.2 x10^3/uL (4.0-11.0) Red Blood Count 1.96 x10^6/uL (3.50-5.40) 2.58 x10^6/uL (3.50-5.40) 3.35 x10^6/uL (3.50-5.40) Hemoglobin 4.6 g/dL (12.0-15.5) 6.3 g/dL (12.0-15.5) 8.5 g/dL (12.0-15.5) Hematocrit 15.2 % (36.0-47.0) 20.2 % (36.0-47.0) 26.4 % (36.0-47.0) Mean Corpuscular Volume 78 fL (79-100) 78 fL (79-100) 79 fL (79-100) Mean Corpuscular Hemoglobin 23 pg (25-35) 24 pg (25-35) 25 pg (25-35) Mean Corpuscular Hemoglobin Concent 30 g/dL (31-37) 31 g/dL (31-37) 32 g/dL (31-37) Red Cell Distribution Width 22.6 % (11.5-14.5) 19.5 % (11.5-14.5) 18.2 % (11.5-14.5) Platelet Count 495 x10^3/uL (140-400) 415 x10^3/uL (140-400) 396 x10^3/uL (140-400) Neutrophils (%) (Auto) 71 % (31-73) 78 % (31-73) Lymphocytes (%) (Auto) 19 % (24-48) 12 % (24-48) Monocytes (%) (Auto) 7 % (0-9) 9 % (0-9) Eosinophils (%) (Auto) 1 % (0-3) 0 % (0-3) Basophils (%) (Auto) 2 % (0-3) 1 % (0-3) Neutrophils # (Auto) 6.6 x10^3/uL (1.8-7.7) 9.3 x10^3/uL (1.8-7.7) Lymphocytes # (Auto) 1.7 x10^3/uL (1.0-4.8) 1.5 x10^3/uL (1.0-4.8) Monocytes # (Auto) 0.7 x10^3/uL (0.0-1.1) 1.1 x10^3/uL (0.0-1.1) Eosinophils # (Auto) 0.1 x10^3/uL (0.0-0.7) 0.0 x10^3/uL (0.0-0.7) Basophils # (Auto) 0.2 x10^3/uL (0.0-0.2) 0.1 x10^3/uL (0.0-0.2) Platelet Estimate Increased (ADEQUATE) Polychromasia Mod Hypochromasia Slight Anisocytosis Mod Ovalocytes Occ Mary Cells Occ Schistocytes Occ Sodium Level 132 mmol/L (136-145) 136 mmol/L (136-145) Potassium Level 5.8 mmol/L (3.5-5.1) 4.8 mmol/L (3.5-5.1) Chloride Level 102 mmol/L (98-107) 105 mmol/L (98-107) Carbon Dioxide Level 15 mmol/L (21-32) 16 mmol/L (21-32) Anion Gap 15 (6-14) 15 (6-14) Blood Urea Nitrogen 46 mg/dL (7-20) 45 mg/dL (7-20) Creatinine 1.8 mg/dL (0.6-1.0) 1.8 mg/dL (0.6-1.0) Estimated GFR (Cockcroft-Gault) 26.7 26.7 BUN/Creatinine Ratio 26 (6-20) 25 (6-20) Glucose Level 129 mg/dL (70-99) 77 mg/dL (70-99) Calcium Level 8.0 mg/dL (8.5-10.1) 7.8 mg/dL (8.5-10.1) Total Bilirubin 0.5 mg/dL (0.2-1.0) 0.4 mg/dL (0.2-1.0) Aspartate Amino Transf (AST/SGOT) 28 U/L (15-37) 15 U/L (15-37) Alanine Aminotransferase (ALT/SGPT) 13 U/L (14-59) 13 U/L (14-59) Alkaline Phosphatase 63 U/L (46-116) 63 U/L (46-116) Total Protein 5.4 g/dL (6.4-8.2) 5.0 g/dL (6.4-8.2) Albumin 2.7 g/dL (3.4-5.0) 2.6 g/dL (3.4-5.0) Albumin/Globulin Ratio 1.0 (1.0-1.7) 1.1 (1.0-1.7) Stool Occult Blood Negative (NEG) Lactic Acid Level 4.6 mmol/L (0.4-2.0) 2.8 mmol/L (0.4-2.0) Laboratory Tests Test 10/21/19 21:30 10/21/19 23:30 10/22/19 00:35 10/22/19 04:00 White Blood Count 9.3 x10^3/uL (4.0-11.0) 11.9 x10^3/uL (4.0-11.0) 12.2 x10^3/uL (4.0-11.0) Red Blood Count 1.96 x10^6/uL (3.50-5.40) 2.58 x10^6/uL (3.50-5.40) 3.35 x10^6/uL (3.50-5.40) Hemoglobin 4.6 g/dL (12.0-15.5) 6.3 g/dL (12.0-15.5) 8.5 g/dL (12.0-15.5) Hematocrit 15.2 % (36.0-47.0) 20.2 % (36.0-47.0) 26.4 % (36.0-47.0) Mean Corpuscular Volume 78 fL (79-100) 78 fL (79-100) 79 fL (79-100) Mean Corpuscular Hemoglobin 23 pg (25-35) 24 pg (25-35) 25 pg (25-35) Mean Corpuscular Hemoglobin Concent 30 g/dL (31-37) 31 g/dL (31-37) 32 g/dL (31-37) Red Cell Distribution Width 22.6 % (11.5-14.5) 19.5 % (11.5-14.5) 18.2 % (11.5-14.5) Platelet Count 495 x10^3/uL (140-400) 415 x10^3/uL (140-400) 396 x10^3/uL (140-400) Neutrophils (%) (Auto) 71 % (31-73) 78 % (31-73) Lymphocytes (%) (Auto) 19 % (24-48) 12 % (24-48) Monocytes (%) (Auto) 7 % (0-9) 9 % (0-9) Eosinophils (%) (Auto) 1 % (0-3) 0 % (0-3) Basophils (%) (Auto) 2 % (0-3) 1 % (0-3) Neutrophils # (Auto) 6.6 x10^3/uL (1.8-7.7) 9.3 x10^3/uL (1.8-7.7) Lymphocytes # (Auto) 1.7 x10^3/uL (1.0-4.8) 1.5 x10^3/uL (1.0-4.8) Monocytes # (Auto) 0.7 x10^3/uL (0.0-1.1) 1.1 x10^3/uL (0.0-1.1) Eosinophils # (Auto) 0.1 x10^3/uL (0.0-0.7) 0.0 x10^3/uL (0.0-0.7) Basophils # (Auto) 0.2 x10^3/uL (0.0-0.2) 0.1 x10^3/uL (0.0-0.2) Platelet Estimate Increased (ADEQUATE) Polychromasia Mod Hypochromasia Slight Anisocytosis Mod Ovalocytes Occ Mary Cells Occ Schistocytes Occ Sodium Level 132 mmol/L (136-145) 136 mmol/L (136-145) Potassium Level 5.8 mmol/L (3.5-5.1) 4.8 mmol/L (3.5-5.1) Chloride Level 102 mmol/L (98-107) 105 mmol/L (98-107) Carbon Dioxide Level 15 mmol/L (21-32) 16 mmol/L (21-32) Anion Gap 15 (6-14) 15 (6-14) Blood Urea Nitrogen 46 mg/dL (7-20) 45 mg/dL (7-20) Creatinine 1.8 mg/dL (0.6-1.0) 1.8 mg/dL (0.6-1.0) Estimated GFR (Cockcroft-Gault) 26.7 26.7 BUN/Creatinine Ratio 26 (6-20) 25 (6-20) Glucose Level 129 mg/dL (70-99) 77 mg/dL (70-99) Calcium Level 8.0 mg/dL (8.5-10.1) 7.8 mg/dL (8.5-10.1) Total Bilirubin 0.5 mg/dL (0.2-1.0) 0.4 mg/dL (0.2-1.0) Aspartate Amino Transf (AST/SGOT) 28 U/L (15-37) 15 U/L (15-37) Alanine Aminotransferase (ALT/SGPT) 13 U/L (14-59) 13 U/L (14-59) Alkaline Phosphatase 63 U/L (46-116) 63 U/L (46-116) Total Protein 5.4 g/dL (6.4-8.2) 5.0 g/dL (6.4-8.2) Albumin 2.7 g/dL (3.4-5.0) 2.6 g/dL (3.4-5.0) Albumin/Globulin Ratio 1.0 (1.0-1.7) 1.1 (1.0-1.7) Stool Occult Blood Negative (NEG) Lactic Acid Level 4.6 mmol/L (0.4-2.0) 2.8 mmol/L (0.4-2.0) Images: Images CT abdomen pelvis without contrast. HISTORY: Abdominal pain CT scan the abdomen pelvis was done without contrast. There is artifacts as the arms are in the [id number]. There is mild atelectasis in the left lower lobe. There is a trace of left pleural effusion. Right lung base is clear. Adrenal glands are normal. Spleen is unremarkable. A liver lesion is not identified. There are right renal cysts. There is a catheter in the bladder. A ureteral calculus is not identified. Appendix is normal. There is atherosclerotic change in the aorta without an aneurysm. There is no small bowel obstruction. Uterus and ovaries are unremarkable. There is mild stool in the colon. There is mild diverticulosis without an acute diverticulitis. There are degenerative change in the lumbar spine. There is severe spinal stenosis at L4-5 and L3-4. There is a right femoral vein catheter extending to the common iliac vein on the right. IMPRESSION: 1. Mild atelectasis left lung base with a trace of pleural effusion on the left. 2. Renal cysts. 3. Normal appendix. 4. No bowel obstruction. 5. Spinal stenosis. 6. Right femoral vein catheter. Assessment/Plan Assessment/Plan GI bleed in a middle-aged female who is also on anticoagulation for A. fib Plan Transfuse packed red blood cells to keep hematoma greater than 7 Trend hemoglobin IV Protonix Consult GI Consul cardiology Interrogate pacemaker Hold anticoagulation Continue other home meds Prognosis long-term guarded MAURA BURLESON III DO Oct 22, 2019 10:42
[2019-10-22 10:57] LABS: PROTHROMBIN TIME PATIENT 56.6 SEC (11.7-14.0)
--- NOTE | 2019-10-22 11:20 | NUR ---
Patient refused CHG wipes and swab
[2019-10-22] MEDS ORDERED: PHYTONADIONE 10 MG/ML AMPUL. SQ ONE ×2 (11:30→12:45)
--- NOTE | 2019-10-22 12:54 | RAD ---
CHEST AP ONLY INDICATION: Pacemaker placement. COMPARISON STUDY: None. FINDINGS: Left pectoral transvenous single chamber pacemaker. Lungs: Normal lung volume. No consolidation. Mild interstitial prominence. Pleura: Trace left pleural effusion. No pneumothorax. Heart and Mediastinum: Cardiomegaly. Tortuous thoracic aorta. IMPRESSION: 1. Left pectoral pacemaker. No pneumothorax. 2. Mild interstitial prominence, which could reflect interstitial edema. 3. Trace left pleural effusion. Electronically signed by: Pancho Crespo MD (10/22/2019 12:51 PM) [id number]
--- NOTE | 2019-10-22 14:44 | NUR ---
SS following for discharge planning. SS reviewed pt chart. Pt is self pay pt. [facility] following for self pay status. Per RN, pt is from [place] and is visiting family. Pt is currently on room air. SS will continue to follow for discharge planning.
--- NOTE | 2019-10-22 16:04 | CARD ---
MR#: [id number] Date of Study: 10/22/2019 Ordering Physician: TORY APONTE, Referring Physician: TORY APONTE, Tech: Paulina Kendall APPROVED REPORT EXAM: Two-dimensional and M-mode echocardiogram with Doppler and color Doppler. Other Information Quality : AverageHR: 94bpm INDICATION Atrial Fibrillation Surgery/Intervention Pacemaker: Date: 2018 2D DIMENSIONS RVDd2.6 (2.9-3.5cm)Left Atrium(2D)3.5 (1.6-4.0cm) IVSd0.8 (0.7-1.1cm)Aortic Root(2D)2.8 (2.0-3.7cm) LVDd4.7 (3.9-5.9cm)LVOT Diameter2.0 (1.8-2.4cm) PWd1.1 (0.7-1.1cm)LVDs2.9 (2.5-4.0cm) FS (%) 34.3 %SV57.0 ml Aortic Valve AoV Peak Parish.134.4cm/sAoV VTI20.4cm AO Peak GR.7.2mmHgLVOT VTI 11.88cm AO Mean GR.4mmHgAI P 1/2 [id number] Mitral Valve MV E Peak Gr.87mmHgMV E Mean Gr.2mmHg TDI Lateral E' P. V7.27cm/sMedial E' P. V8.50cm/s Tricuspid Valve TR P. [id number]/sRAP [id number] TR Peak Gr.[id number] LEFT VENTRICLE The left ventricle is normal size. There is borderline to mild concentric left ventricular hypertroph y. The left ventricular systolic function is normal and the ejection fraction is within normal range. The Ejection Fraction is 50-55%. Wall motion consistent with conduction abnormality. Diastology inde terminate due to atrial fibrillation. RIGHT VENTRICLE The right ventricle is normal size. There is normal right ventricular wall thickness. The right ventr icular systolic function is normal. ATRIA The left atrium size is normal. The right atrium is mildly dilated. The interatrial septum is intact with no evidence for an atrial septal defect or patent foramen ovale as noted on 2-D or Doppler imagi ng. AORTIC VALVE The aortic valve is calcified but opens well. Doppler and Color Flow revealed mild aortic regurgitati on. There is no significant aortic valvular stenosis. MITRAL VALVE The mitral valve is mildly thickened. There is no evidence of mitral valve prolapse. There is no mitr al valve stenosis. The mitral valve mean gradient is 2.13 mmHg. Doppler and Color-flow revealed mild to moderate mitral regurgitation. TRICUSPID VALVE The tricuspid valve is normal in structure and function. Doppler and Color Flow revealed mild to mode rate tricuspid regurgitation with an estimated PAP of 42 mmHg. There is no tricuspid valve stenosis. PULMONIC VALVE The pulmonic valve is not well visualized. Doppler and Color Flow revealed trace pulmonic valvular re gurgitation. GREAT VESSELS The aortic root is normal in size. The IVC is dilated and collapses <50% with inspiration. PERICARDIAL EFFUSION There is no evidence of significant pericardial effusion. Critical Notification Critical Value: No <Conclusion> The left ventricle is normal size. The left ventricular systolic function is normal and the ejection fraction is within normal range. The Ejection Fraction is 50-55%. There is borderline to mild concentric left ventricular hypertrophy. Doppler and Color Flow revealed mild aortic regurgitation. There is no significant aortic valvular stenosis. Doppler and Color-flow revealed mild to moderate mitral regurgitation. Doppler and Color Flow revealed mild to moderate tricuspid regurgitation with an estimated PAP of 42 mmHg. Signed by : Tevin Cole MD Electronically Approved : 10/22/2019 16:04:27
[2019-10-23 00:01] LABS: HEMATOCRIT 21.7 % (36.0-47.0); HEMOGLOBIN 7.3 g/dL (12.0-15.5)
[2019-10-23] MEDS ORDERED: LOSA-73 PO (00:09)
[2019-10-23] MEDS ORDERED: ATOR10TA60 PO (00:09)
[2019-10-23] MEDS ORDERED: VERA240C2 PO (00:14)
[2019-10-23] MEDS ORDERED: OMEP40CA45 PO ×2 (00:17→00:18)
[2019-10-23] MEDS ORDERED: FURO40TA4 PO (00:21)
[2019-10-23] MEDS: VERAPAMIL SR 120 MG TABLET.ER. PO SCH ×2 (00:54→09:48)
[2019-10-23 03:09] VITALS: BP 114/58
[2019-10-23] MEDS ORDERED: DIGOXIN 125 MCG TABLET. PO PRN (05:15)
[2019-10-23] MEDS: PANTOPRAZOLE SODIUM IV DRIP 80 MG in IV NORMAL SALINE 100ML 100 ML IV SCH (05:30)
[2019-10-23 05:58] LABS: PROTHROMBIN TIME PATIENT 23.4 SEC (11.7-14.0)
[2019-10-23 07:00] VITALS: BP 93/51
--- NOTE | 2019-10-23 08:22 | PDOC ---
PROGRESS NOTES Chief Complaint Chief Complaint A/P: Acute blood loss anemia -initially 4.6 and better post 2U PRBC GI bleed: hx of PUD with continued use of pradaxa Elevated INR AFIB - HR in the 100s Chronic vs paroxysmal. 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 Pt does not speak [place] and family members speaks limited [place]. Noting her medication that was brought, she takes pradaxa and verapamil for AFIB. She also takes losartan. Looking at her pill bottle it appears she may have been rivaroxiban in the past. It is unclear if end up taking both. She is a poor historian. Denies any chest pain and no SOA but complains of abdominal pain and further revealed significant anemia at 4.6 Hgb requiring 2U PRBC. She does have hx of GI bleed and PUD unclear where. Positive for vomiting but does have black stools. Denies any past hx of CAD, CVA. 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 Admission Labs noted Hgb 4.6 (now 8.5 s/p transfusions), MCV 78, RDW 22.6, lactic acid 4.6 (now 2.8), BUN 46, Cr 1.8. Daughter says stools have looked black. Additionally reports decreased appetite and weight loss. H/o anemia requiring blood transfusion in [place] in 07/2019. EGD at that time w/ ulcer. Daughter says no longer taking anything for ulcer, but later says she takes omeprazole for pain. Denies use of blood thinners, however medications w/ nurse - include Pradaxa. Seen by cardiology and GI. Hb stabilized after tranfusion, iron deficient. She feels weak, but wishes to leave the hospital. ECHO The left ventricle is normal size. The left ventricular systolic function is normal and the ejection fraction is within normal range. The Ejection Fraction is 50-55%. There is borderline to mild concentric left ventricular hypertrophy. Doppler and Color Flow revealed mild aortic regurgitation. There is no significant aortic valvular stenosis. Doppler and Color-flow revealed mild to moderate mitral regurgitation. Doppler and Color Flow revealed mild to moderate tricuspid regurgitation with an estimated PAP of 42 mmHg. Vitals Vitals Vital Signs Date Time Temp Pulse Resp B/P (MAP) Pulse Ox O2 Delivery O2 Flow Rate FiO2 10/23/19 07:00 98.1 79 18 93/51 (65) 97 Room Air 98.1 10/23/19 03:09 2.0 Physical Exam General: Alert, Oriented X3, Cooperative, No acute distress Heart: Other (AFIB) Abdomen: Soft, No tenderness Extremities: No cyanosis, No edema Skin: No breakdown, No significant lesion Labs LABS Laboratory Tests Test 10/22/19 23:40 10/23/19 05:00 Hemoglobin 7.3 g/dL (12.0-15.5) Hematocrit 21.7 % (36.0-47.0) Mean Corpuscular Hemoglobin Concent 34 g/dL (31-37) Prothrombin Time 23.4 SEC (11.7-14.0) Prothromb Time International Ratio 2.1 (0.8-1.1) Assessment and Plan Assessmemt and Plan Problems Medical Problems: (1) ELIZABETH (acute kidney injury) Status: Acute (2) Hyperkalemia Status: Acute (3) Hypotension Status: Acute (4) Lactic acid acidosis Status: Acute Comment Review of Relevant I have reviewed the following items virginie (where applicable) has been applied. Labs Laboratory Tests Test 10/21/19 21:30 10/21/19 23:30 10/22/19 00:23 10/22/19 00:35 White Blood Count 9.3 x10^3/uL (4.0-11.0) 11.9 x10^3/uL (4.0-11.0) Red Blood Count 1.96 x10^6/uL (3.50-5.40) 2.58 x10^6/uL (3.50-5.40) Hemoglobin 4.6 g/dL (12.0-15.5) 6.3 g/dL (12.0-15.5) Hematocrit 15.2 % (36.0-47.0) 20.2 % (36.0-47.0) Mean Corpuscular Volume 78 fL (79-100) 78 fL (79-100) Mean Corpuscular Hemoglobin 23 pg (25-35) 24 pg (25-35) Mean Corpuscular Hemoglobin Concent 30 g/dL (31-37) 31 g/dL (31-37) Red Cell Distribution Width 22.6 % (11.5-14.5) 19.5 % (11.5-14.5) Platelet Count 495 x10^3/uL (140-400) 415 x10^3/uL (140-400) Neutrophils (%) (Auto) 71 % (31-73) 78 % (31-73) Lymphocytes (%) (Auto) 19 % (24-48) 12 % (24-48) Monocytes (%) (Auto) 7 % (0-9) 9 % (0-9) Eosinophils (%) (Auto) 1 % (0-3) 0 % (0-3) Basophils (%) (Auto) 2 % (0-3) 1 % (0-3) Neutrophils # (Auto) 6.6 x10^3/uL (1.8-7.7) 9.3 x10^3/uL (1.8-7.7) Lymphocytes # (Auto) 1.7 x10^3/uL (1.0-4.8) 1.5 x10^3/uL (1.0-4.8) Monocytes # (Auto) 0.7 x10^3/uL (0.0-1.1) 1.1 x10^3/uL (0.0-1.1) Eosinophils # (Auto) 0.1 x10^3/uL (0.0-0.7) 0.0 x10^3/uL (0.0-0.7) Basophils # (Auto) 0.2 x10^3/uL (0.0-0.2) 0.1 x10^3/uL (0.0-0.2) Platelet Estimate Increased (ADEQUATE) Polychromasia Mod Hypochromasia Slight Anisocytosis Mod Ovalocytes Occ Mary Cells Occ Schistocytes Occ Sodium Level 132 mmol/L (136-145) 136 mmol/L (136-145) Potassium Level 5.8 mmol/L (3.5-5.1) 4.8 mmol/L (3.5-5.1) Chloride Level 102 mmol/L (98-107) 105 mmol/L (98-107) Carbon Dioxide Level 15 mmol/L (21-32) 16 mmol/L (21-32) Anion Gap 15 (6-14) 15 (6-14) Blood Urea Nitrogen 46 mg/dL (7-20) 45 mg/dL (7-20) Creatinine 1.8 mg/dL (0.6-1.0) 1.8 mg/dL (0.6-1.0) Estimated GFR (Cockcroft-Gault) 26.7 26.7 BUN/Creatinine Ratio 26 (6-20) 25 (6-20) Glucose Level 129 mg/dL (70-99) 77 mg/dL (70-99) Calcium Level 8.0 mg/dL (8.5-10.1) 7.8 mg/dL (8.5-10.1) Total Bilirubin 0.5 mg/dL (0.2-1.0) 0.4 mg/dL (0.2-1.0) Aspartate Amino Transf (AST/SGOT) 28 U/L (15-37) 15 U/L (15-37) Alanine Aminotransferase (ALT/SGPT) 13 U/L (14-59) 13 U/L (14-59) Alkaline Phosphatase 63 U/L (46-116) 63 U/L (46-116) Total Protein 5.4 g/dL (6.4-8.2) 5.0 g/dL (6.4-8.2) Albumin 2.7 g/dL (3.4-5.0) 2.6 g/dL (3.4-5.0) Albumin/Globulin Ratio 1.0 (1.0-1.7) 1.1 (1.0-1.7) Stool Occult Blood Negative (NEG) Thyroid Stimulating Hormone (TSH) 2.626 uIU/mL (0.358-3.74) Lactic Acid Level 4.6 mmol/L (0.4-2.0) Test 10/22/19 04:00 10/22/19 23:40 10/23/19 05:00 White Blood Count 12.2 x10^3/uL (4.0-11.0) Red Blood Count 3.35 x10^6/uL (3.50-5.40) Hemoglobin 8.5 g/dL (12.0-15.5) 7.3 g/dL (12.0-15.5) Hematocrit 26.4 % (36.0-47.0) 21.7 % (36.0-47.0) Mean Corpuscular Volume 79 fL (79-100) Mean Corpuscular Hemoglobin 25 pg (25-35) Mean Corpuscular Hemoglobin Concent 32 g/dL (31-37) 34 g/dL (31-37) Red Cell Distribution Width 18.2 % (11.5-14.5) Platelet Count 396 x10^3/uL (140-400) Prothrombin Time 56.6 SEC (11.7-14.0) 23.4 SEC (11.7-14.0) Prothromb Time International Ratio 6.4 (0.8-1.1) 2.1 (0.8-1.1) Lactic Acid Level 2.8 mmol/L (0.4-2.0) Laboratory Tests Test 10/22/19 23:40 10/23/19 05:00 Hemoglobin 7.3 g/dL (12.0-15.5) Hematocrit 21.7 % (36.0-47.0) Mean Corpuscular Hemoglobin Concent 34 g/dL (31-37) Prothrombin Time 23.4 SEC (11.7-14.0) Prothromb Time International Ratio 2.1 (0.8-1.1) Medications Current Medications Calcium Gluconate (Calcium Gluconate) 1,000 mg 1X ONCE IVP Last administered on 10/21/19at 22:40; Start 10/21/19 at 22:30; Stop 10/21/19 at 22:31; Status DC Sodium Bicarbonate (Sodium Bicarb Adult 8.4% Syr) 50 meq 1X ONCE IV Last administered on 10/21/19at 22:40; Start 10/21/19 at 22:30; Stop 10/21/19 at 22:31; Status DC Dextrose (Dextrose 50%-Water Syringe) 25 gm 1X ONCE IV Last administered on 10/21/19at 22:40; Start 10/21/19 at 22:30; Stop 10/21/19 at 22:31; Status DC Insulin Human Regular (HumuLIN R VIAL) 10 unit 1X ONCE IV Last administered on 10/21/19at 22:40; Start 10/21/19 at 22:30; Stop 10/21/19 at 22:31; Status DC Sodium Chloride 1,000 ml @ 1,000 mls/hr Q1H IV Last administered on 10/21/19at 22:40; Start 10/21/19 at 22:15; Stop 10/21/19 at 23:14; Status DC Pantoprazole Sodium (PROTONIX VIAL for IV PUSH) 80 mg 1X ONCE IVP Last administered on 10/21/19at 00:15; Start 10/21/19 at 23:30; Stop 10/21/19 at 23:3 4; Status DC Pantoprazole Sodium 80 mg/ Sodium Chloride 100 ml @ 10 mls/hr Q10H IV Last administered on 10/22/19at 23:44; Start 10/21/19 at 23:30 Morphine Sulfate (Morphine Sulfate) 2 mg STK-MED ONCE .ROUTE ; Start 10/21/19 at 23:39; Stop 10/21/19 at 23:40; Status DC Morphine Sulfate (Morphine Sulfate) 1 mg 1X ONCE IV Last administered on 10/21/19at 00:00; Start 10/21/19 at 23:55; Stop 10/21/19 at 23:56; Status DC Ondansetron HCl (Zofran) 4 mg PRN Q8HRS PRN IV NAUSEA/VOMITING; Start 10/22/19 at 00:45; Stop 10/23/19 at 00:44; Status DC Morphine Sulfate (Morphine Sulfate) 2 mg PRN Q2HR PRN IV PAIN; Start 10/22/19 at 00:45; Stop 10/23/19 at 00:44; Status DC Furosemide (Lasix) 20 mg 1X ONCE IVP Last administered on 10/22/19at 00:45; Start 10/22/19 at 00:45; Stop 10/22/19 at 00:46; Status DC Sodium Chloride 1,000 ml @ 0 mls/hr 1X ONCE IV Last administered on 10/22/19at 09:52; Start 10/22/19 at 00:45; Stop 10/22/19 at 00:46; Status DC Furosemide (Lasix) 20 mg STK-MED ONCE .ROUTE ; Start 10/22/19 at 00:46; Stop 10/22/19 at 00:46; Status DC Digoxin (Lanoxin) 250 mcg 1X ONCE IV Last administered on 10/22/19at 09:52; Start 10/22/19 at 09:30; Stop 10/22/19 at 09:31; Status DC Phytonadione (Vitamin K Ampule) 10 mg 1X ONCE SQ Last administered on 10/22/19 at 12:43; Start 10/22/19 at 11:30; Stop 10/22/19 at 11:31; Status DC Phytonadione (Vitamin K Ampule) 10 mg 1X ONCE SQ ; Start 10/22/19 at 12:45; Stop 10/22/19 at 12:46; Status Cancel Atorvastatin Calcium (Lipitor) 10 mg HS PO ; Start 10/23/19 at 21:00 Furosemide (Lasix) 40 mg DAILY PO ; Start 10/23/19 at 09:00; Stop 10/23/19 at 05:06; Status DC Verapamil HCl (Calan Sr) 120 mg BID PO Last administered on 10/23/19at 00:54; Start 10/23/19 at 00:30 Digoxin (Lanoxin) 250 mcg DAILY PO ; Start 10/23/19 at 09:00; Stop 10/23/19 at 05:16; Status DC Digoxin (Lanoxin) 250 mcg 1X PRN PO TACHYCARDIA; Start 10/23/19 at 05:15; Stop 10/23/19 at 07:00; Status DC Active Scripts Active Reported Furosemide 40 Mg Tablet 1 Tab PO DAILY Omeprazole 40 Mg Capsule.dr 40 Mg PO DAILY Verapamil Er (Verapamil Hcl) 240 Mg Cap24h.pel 100 Mg PO BID Atorvastatin Calcium 10 Mg Tablet 10 Mg PO DAILY Losartan Potassium 50 Mg Tablet 50 Mg PO DAILY Vitals/I & O Vital Sign - Last 24 Hours 10/22/19 10/22/19 10/22/19 10/22/19 09:00 09:52 10:00 11:00 Pulse 107 112 105 108 Resp 16 16 16 B/P (MAP) 91/69 (76) 95/66 95/66 (76) 94/70 (78) Pulse Ox 100 100 100 O2 Delivery Room Air Room Air Room Air 10/22/19 10/22/19 10/22/19 10/22/19 12:00 12:00 12:52 13:00 Temp 97.9 97.9 97.9 97.9 Pulse 115 98 108 Resp 16 16 16 B/P (MAP) 93/60 (71) 102/64 116/59 (78) Pulse Ox 100 100 O2 Delivery Room Air Room Air Room Air 10/22/19 10/22/19 10/22/19 10/22/19 13:00 13:28 13:45 14:00 Temp 98.5 98.5 Pulse 104 104 100 100 Resp 16 16 16 16 B/P (MAP) 108/58 105/67 101/62 102/42 (62) Pulse Ox 100 O2 Delivery Room Air 10/22/19 10/22/19 10/22/19 10/22/19 14:00 14:15 14:57 15:00 Temp 98.0 98.2 98.2 98.0 98.2 98.2 Pulse 100 123 66 94 Resp 16 16 16 16 B/P (MAP) 102/72 102/72 108/64 102/63 (76) Pulse Ox 100 O2 Delivery Room Air 10/22/19 10/22/19 10/22/19 10/22/19 15:14 15:30 15:45 16:00 Temp 97.9 97.9 97.9 97.9 Pulse 94 108 92 Resp 16 16 16 B/P (MAP) 101/53 101/70 104/58 O2 Delivery Room Air 10/22/19 10/22/19 10/22/19 10/22/19 16:00 16:00 16:15 16:30 Temp 98.2 98.2 98.2 98.2 Pulse 94 94 102 102 Resp 16 16 20 16 B/P (MAP) 102/51 102/51 (68) 104/65 113/67 Pulse Ox 100 O2 Delivery Room Air 10/22/19 10/22/19 10/22/19 10/22/19 17:00 20:00 20:24 23:10 Temp 98.4 97.3 98.4 97.3 Pulse 100 79 97 Resp 16 16 16 B/P (MAP) 102/65 (77) 109/57 (74) 114/67 (83) Pulse Ox 100 91 93 O2 Delivery Room Air Room Air Room Air Nasal Cannula O2 Flow Rate 2.0 10/23/19 10/23/19 10/23/19 00:54 03:09 07:00 Temp 98.0 98.1 98.0 98.1 Pulse 120 93 79 Resp 16 18 B/P (MAP) 114/67 114/58 (76) 93/51 (65) Pulse Ox 98 97 O2 Delivery Room Air Room Air O2 Flow Rate 2.0 Intake and Output 10/22/19 10/22/19 10/23/19 15:00 23:00 07:00 Intake Total 120 ml Output Total 410 ml 770 ml 500 ml Balance -290 ml -770 ml -500 ml Nutrition Consultation Dietary Evaluation: Recommendations by RD: Dietary education by RD, Increase Calorie Intake, Protein supplementation Comments: REC Ensure clear (apple) BID - dilute w/water per pt preference REC advance diet as able per GI, goal diet caridac When diet advanced past clear liquids, recommend Ensure (chocolate or strawberry) BID Expected Outcomes/Goals: Diet advancement Interpretation of weight loss: >10% in 6 months Malnutrition Findings: Food and Nutrition Intake (Mod: <75% est energy req 7days Food and Nutrition Intake (Sev: <50% est energy req 5days Weight Status: Appropriate MAUREEN MARKHAM MD Oct 23, 2019 08:21
[2019-10-23 08:38] LABS: BASO # 0.1 x10^3/uL (0.0-0.2); BASO % 1 % (0-3); EOS # 0.2 x10^3/uL (0.0-0.7); EOS % 3 % (0-3); HEMATOCRIT 23.6 % (36.0-47.0); HEMOGLOBIN 7.6 g/dL (12.0-15.5); LYMPH # 0.6 x10^3/uL (1.0-4.8); LYMPH % 9 % (24-48); MEAN CORPUSCULAR HEMOGLOBIN 26 pg (25-35); MEAN CORPUSCULAR HGB CONC 32 g/dL (31-37); MEAN CORPUSCULAR VOLUME 79 fL (79-100); MONO # 0.4 x10^3/uL (0.0-1.1); MONO % 6 % (0-9); NEUT # 5.8 x10^3/uL (1.8-7.7); NEUT % 81 % (31-73); PLATELET COUNT 345 x10^3/uL (140-400); RED BLOOD COUNT 2.98 x10^6/uL (3.50-5.40); RED CELL DISTRIBUTION WIDTH 18.2 % (11.5-14.5); WHITE BLOOD COUNT 7.1 x10^3/uL (4.0-11.0)
[2019-10-23 08:43] LABS: ALBUMIN 2.7 g/dL (3.4-5.0); ALBUMIN/GLOBULIN RATIO 1.2 (1.0-1.7); CREATININE 1.1 mg/dL (0.6-1.0); GFR 47.1; POTASSIUM 4.3 mmol/L (3.5-5.1); TOTAL BILIRUBIN 1.1 mg/dL (0.2-1.0)
[2019-10-23] MEDS ORDERED: DIGOXIN 125 MCG TABLET. PO SCH (09:00)
[2019-10-23] MEDS ORDERED: FUROSEMIDE 40 MG TABLET. PO SCH (09:00)
[2019-10-23 10:45] VITALS: BP 113/53
--- NOTE | 2019-10-23 11:22 | PDOC ---
G I PROGRESS NOTE Subjective Poor appetite. Seems to deny pain or any signs of active GI bleeding. Physical Exam Lungs clear. RRR Abdomen soft, not clearly tender. Review of Relevant I have reviewed the following items virginie (where applicable) has been applied. Labs Laboratory Tests Test 10/21/19 21:30 10/21/19 23:30 10/22/19 00:23 10/22/19 00:35 White Blood Count 9.3 x10^3/uL (4.0-11.0) 11.9 x10^3/uL (4.0-11.0) Red Blood Count 1.96 x10^6/uL (3.50-5.40) 2.58 x10^6/uL (3.50-5.40) Hemoglobin 4.6 g/dL (12.0-15.5) 6.3 g/dL (12.0-15.5) Hematocrit 15.2 % (36.0-47.0) 20.2 % (36.0-47.0) Mean Corpuscular Volume 78 fL (79-100) 78 fL (79-100) Mean Corpuscular Hemoglobin 23 pg (25-35) 24 pg (25-35) Mean Corpuscular Hemoglobin Concent 30 g/dL (31-37) 31 g/dL (31-37) Red Cell Distribution Width 22.6 % (11.5-14.5) 19.5 % (11.5-14.5) Platelet Count 495 x10^3/uL (140-400) 415 x10^3/uL (140-400) Neutrophils (%) (Auto) 71 % (31-73) 78 % (31-73) Lymphocytes (%) (Auto) 19 % (24-48) 12 % (24-48) Monocytes (%) (Auto) 7 % (0-9) 9 % (0-9) Eosinophils (%) (Auto) 1 % (0-3) 0 % (0-3) Basophils (%) (Auto) 2 % (0-3) 1 % (0-3) Neutrophils # (Auto) 6.6 x10^3/uL (1.8-7.7) 9.3 x10^3/uL (1.8-7.7) Lymphocytes # (Auto) 1.7 x10^3/uL (1.0-4.8) 1.5 x10^3/uL (1.0-4.8) Monocytes # (Auto) 0.7 x10^3/uL (0.0-1.1) 1.1 x10^3/uL (0.0-1.1) Eosinophils # (Auto) 0.1 x10^3/uL (0.0-0.7) 0.0 x10^3/uL (0.0-0.7) Basophils # (Auto) 0.2 x10^3/uL (0.0-0.2) 0.1 x10^3/uL (0.0-0.2) Platelet Estimate Increased (ADEQUATE) Polychromasia Mod Hypochromasia Slight Anisocytosis Mod Ovalocytes Occ [place] Cells Occ Schistocytes Occ Sodium Level 132 mmol/L (136-145) 136 mmol/L (136-145) Potassium Level 5.8 mmol/L (3.5-5.1) 4.8 mmol/L (3.5-5.1) Chloride Level 102 mmol/L (98-107) 105 mmol/L (98-107) Carbon Dioxide Level 15 mmol/L (21-32) 16 mmol/L (21-32) Anion Gap 15 (6-14) 15 (6-14) Blood Urea Nitrogen 46 mg/dL (7-20) 45 mg/dL (7-20) Creatinine 1.8 mg/dL (0.6-1.0) 1.8 mg/dL (0.6-1.0) Estimated GFR (Cockcroft-Gault) 26.7 26.7 BUN/Creatinine Ratio 26 (6-20) 25 (6-20) Glucose Level 129 mg/dL (70-99) 77 mg/dL (70-99) Calcium Level 8.0 mg/dL (8.5-10.1) 7.8 mg/dL (8.5-10.1) Total Bilirubin 0.5 mg/dL (0.2-1.0) 0.4 mg/dL (0.2-1.0) Aspartate Amino Transf (AST/SGOT) 28 U/L (15-37) 15 U/L (15-37) Alanine Aminotransferase (ALT/SGPT) 13 U/L (14-59) 13 U/L (14-59) Alkaline Phosphatase 63 U/L (46-116) 63 U/L (46-116) Total Protein 5.4 g/dL (6.4-8.2) 5.0 g/dL (6.4-8.2) Albumin 2.7 g/dL (3.4-5.0) 2.6 g/dL (3.4-5.0) Albumin/Globulin Ratio 1.0 (1.0-1.7) 1.1 (1.0-1.7) Stool Occult Blood Negative (NEG) Thyroid Stimulating Hormone (TSH) 2.626 uIU/mL (0.358-3.74) Lactic Acid Level 4.6 mmol/L (0.4-2.0) Test 10/22/19 04:00 10/22/19 23:40 10/23/19 05:00 White Blood Count 12.2 x10^3/uL (4.0-11.0) 7.1 x10^3/uL (4.0-11.0) Red Blood Count 3.35 x10^6/uL (3.50-5.40) 2.98 x10^6/uL (3.50-5.40) Hemoglobin 8.5 g/dL (12.0-15.5) 7.3 g/dL (12.0-15.5) 7.6 g/dL (12.0-15.5) Hematocrit 26.4 % (36.0-47.0) 21.7 % (36.0-47.0) 23.6 % (36.0-47.0) Mean Corpuscular Volume 79 fL (79-100) 79 fL (79-100) Mean Corpuscular Hemoglobin 25 pg (25-35) 26 pg (25-35) Mean Corpuscular Hemoglobin Concent 32 g/dL (31-37) 34 g/dL (31-37) 32 g/dL (31-37) Red Cell Distribution Width 18.2 % (11.5-14.5) 18.2 % (11.5-14.5) Platelet Count 396 x10^3/uL (140-400) 345 x10^3/uL (140-400) Prothrombin Time 56.6 SEC (11.7-14.0) 23.4 SEC (11.7-14.0) Prothromb Time International Ratio 6.4 (0.8-1.1) 2.1 (0.8-1.1) Lactic Acid Level 2.8 mmol/L (0.4-2.0) Neutrophils (%) (Auto) 81 % (31-73) Lymphocytes (%) (Auto) 9 % (24-48) Monocytes (%) (Auto) 6 % (0-9) Eosinophils (%) (Auto) 3 % (0-3) Basophils (%) (Auto) 1 % (0-3) Neutrophils # (Auto) 5.8 x10^3/uL (1.8-7.7) Lymphocytes # (Auto) 0.6 x10^3/uL (1.0-4.8) Monocytes # (Auto) 0.4 x10^3/uL (0.0-1.1) Eosinophils # (Auto) 0.2 x10^3/uL (0.0-0.7) Basophils # (Auto) 0.1 x10^3/uL (0.0-0.2) Sodium Level 137 mmol/L (136-145) Potassium Level 4.3 mmol/L (3.5-5.1) Chloride Level 105 mmol/L (98-107) Carbon Dioxide Level 20 mmol/L (21-32) Anion Gap 12 (6-14) Blood Urea Nitrogen 30 mg/dL (7-20) Creatinine 1.1 mg/dL (0.6-1.0) Estimated GFR (Cockcroft-Gault) 47.1 BUN/Creatinine Ratio 27 (6-20) Glucose Level 81 mg/dL (70-99) Calcium Level 8.0 mg/dL (8.5-10.1) Total Bilirubin 1.1 mg/dL (0.2-1.0) Aspartate Amino Transf (AST/SGOT) 18 U/L (15-37) Alanine Aminotransferase (ALT/SGPT) 12 U/L (14-59) Alkaline Phosphatase 76 U/L (46-116) Total Protein 5.0 g/dL (6.4-8.2) Albumin 2.7 g/dL (3.4-5.0) Albumin/Globulin Ratio 1.2 (1.0-1.7) Laboratory Tests Test 10/22/19 23:40 10/23/19 05:00 Hemoglobin 7.3 g/dL (12.0-15.5) 7.6 g/dL (12.0-15.5) Hematocrit 21.7 % (36.0-47.0) 23.6 % (36.0-47.0) Mean Corpuscular Hemoglobin Concent 34 g/dL (31-37) 32 g/dL (31-37) White Blood Count 7.1 x10^3/uL (4.0-11.0) Red Blood Count 2.98 x10^6/uL (3.50-5.40) Mean Corpuscular Volume 79 fL (79-100) Mean Corpuscular Hemoglobin 26 pg (25-35) Red Cell Distribution Width 18.2 % (11.5-14.5) Platelet Count 345 x10^3/uL (140-400) Neutrophils (%) (Auto) 81 % (31-73) Lymphocytes (%) (Auto) 9 % (24-48) Monocytes (%) (Auto) 6 % (0-9) Eosinophils (%) (Auto) 3 % (0-3) Basophils (%) (Auto) 1 % (0-3) Neutrophils # (Auto) 5.8 x10^3/uL (1.8-7.7) Lymphocytes # (Auto) 0.6 x10^3/uL (1.0-4.8) Monocytes # (Auto) 0.4 x10^3/uL (0.0-1.1) Eosinophils # (Auto) 0.2 x10^3/uL (0.0-0.7) Basophils # (Auto) 0.1 x10^3/uL (0.0-0.2) Prothrombin Time 23.4 SEC (11.7-14.0) Prothromb Time International Ratio 2.1 (0.8-1.1) Sodium Level 137 mmol/L (136-145) Potassium Level 4.3 mmol/L (3.5-5.1) Chloride Level 105 mmol/L (98-107) Carbon Dioxide Level 20 mmol/L (21-32) Anion Gap 12 (6-14) Blood Urea Nitrogen 30 mg/dL (7-20) Creatinine 1.1 mg/dL (0.6-1.0) Estimated GFR (Cockcroft-Gault) 47.1 BUN/Creatinine Ratio 27 (6-20) Glucose Level 81 mg/dL (70-99) Calcium Level 8.0 mg/dL (8.5-10.1) Total Bilirubin 1.1 mg/dL (0.2-1.0) Aspartate Amino Transf (AST/SGOT) 18 U/L (15-37) Alanine Aminotransferase (ALT/SGPT) 12 U/L (14-59) Alkaline Phosphatase 76 U/L (46-116) Total Protein 5.0 g/dL (6.4-8.2) Albumin 2.7 g/dL (3.4-5.0) Albumin/Globulin Ratio 1.2 (1.0-1.7) Vitals/I & O Vital Sign - Last 24 Hours 10/22/19 10/22/19 10/22/19 10/22/19 12:00 12:00 12:52 13:00 Temp 97.9 97.9 97.9 97.9 Pulse 115 98 108 Resp 16 16 16 B/P (MAP) 93/60 (71) 102/64 116/59 (78) Pulse Ox 100 100 O2 Delivery Room Air Room Air Room Air 10/22/19 10/22/19 10/22/19 10/22/19 13:00 13:28 13:45 14:00 Temp 98.5 98.5 Pulse 104 104 100 100 Resp 16 16 16 16 B/P (MAP) 108/58 105/67 101/62 102/42 (62) Pulse Ox 100 O2 Delivery Room Air 10/22/19 10/22/19 10/22/19 10/22/19 14:00 14:15 14:57 15:00 Temp 98.0 98.2 98.2 98.0 98.2 98.2 Pulse 100 123 66 94 Resp 16 16 16 16 B/P (MAP) 102/72 102/72 108/64 102/63 (76) Pulse Ox 100 O2 Delivery Room Air 10/22/19 10/22/19 10/22/19 10/22/19 15:14 15:30 15:45 16:00 Temp 97.9 97.9 97.9 97.9 Pulse 94 108 92 Resp 16 16 16 B/P (MAP) 101/53 101/70 104/58 O2 Delivery Room Air 10/22/19 10/22/19 10/22/19 10/22/19 16:00 16:00 16:15 16:30 Temp 98.2 98.2 98.2 98.2 Pulse 94 94 102 102 Resp 16 16 20 16 B/P (MAP) 102/51 102/51 (68) 104/65 113/67 Pulse Ox 100 O2 Delivery Room Air 10/22/19 10/22/19 10/22/19 10/22/19 17:00 20:00 20:24 23:10 Temp 98.4 97.3 98.4 97.3 Pulse 100 79 97 Resp 16 16 16 B/P (MAP) 102/65 (77) 109/57 (74) 114/67 (83) Pulse Ox 100 91 93 O2 Delivery Room Air Room Air Room Air Nasal Cannula O2 Flow Rate 2.0 10/23/19 10/23/19 10/23/19 10/23/19 00:54 03:09 07:00 09:48 Temp 98.0 98.1 98.0 98.1 Pulse 120 93 79 79 Resp 16 18 B/P (MAP) 114/67 114/58 (76) 93/51 (65) 93/51 Pulse Ox 98 97 O2 Delivery Room Air Room Air O2 Flow Rate 2.0 10/23/19 10:45 Temp 98.2 98.2 Pulse 79 Resp 18 B/P (MAP) 113/53 (73) Pulse Ox 99 O2 Delivery Room Air Intake and Output0 10/22/19 10/22/19 10/23/19 15:00 23:00 07:00 Intake Total 120 ml Output Total 410 ml 770 ml 500 ml Balance -290 ml -770 ml -500 ml Problem List Problems Medical Problems: (1) ELIZABETH (acute kidney injury) Status: Acute (2) Hyperkalemia Status: Acute (3) Hypotension Status: Acute (4) Lactic acid acidosis Status: Acute Assessment Anemia with h/o recent bleeding PUD. No signs bleeding here. Some may have been attrition of banked blood w/o iron supplementation. Hemoglobin stable after initial transfusion. Plan of Care Note Considet advance diet and go to po PPI. Home if tolerates on PPI and IRON. MADHURI ABDALLA MD Oct 23, 2019 11:22
[2019-10-23] MEDS ORDERED: PANT40TA77 PO (11:42)
[2019-10-23] MEDS ORDERED: FERR-36 PO (11:42)
[2019-10-23] MEDS ORDERED: ASCO500C PO (11:43)
--- NOTE | 2019-10-23 11:46 | PDOC3 ---
Discharge Summary Visit Information Date of Admission: Oct 21, 2019 Date of Discharge: Oct 23, 2019 Admitting Diagnosis: Acute anemia Final Diagnosis Problems Medical Problems: (1) ELIZABETH (acute kidney injury) Status: Acute (2) Hyperkalemia Status: Acute (3) Hypotension Status: Acute (4) Lactic acid acidosis Status: Acute Brief Hospital Course Allergies Allergies Coded Allergies Type Severity Reaction Last Updated Verified No Known Drug Allergies 10/21/19 No Vital Signs Vital Signs Date Time Temp Pulse Resp B/P (MAP) Pulse Ox O2 Delivery O2 Flow Rate FiO2 10/23/19 10:45 98.2 79 18 113/53 (73) 99 Room Air 98.2 10/23/19 03:09 2.0 Lab Results Laboratory Tests Test 10/21/19 21:30 10/21/19 23:30 10/22/19 00:23 10/22/19 00:35 White Blood Count 9.3 x10^3/uL (4.0-11.0) 11.9 x10^3/uL (4.0-11.0) Red Blood Count 1.96 x10^6/uL (3.50-5.40) 2.58 x10^6/uL (3.50-5.40) Hemoglobin 4.6 g/dL (12.0-15.5) 6.3 g/dL (12.0-15.5) Hematocrit 15.2 % (36.0-47.0) 20.2 % (36.0-47.0) Mean Corpuscular Volume 78 fL (79-100) 78 fL (79-100) Mean Corpuscular Hemoglobin 23 pg (25-35) 24 pg (25-35) Mean Corpuscular Hemoglobin Concent 30 g/dL (31-37) 31 g/dL (31-37) Red Cell Distribution Width 22.6 % (11.5-14.5) 19.5 % (11.5-14.5) Platelet Count 495 x10^3/uL (140-400) 415 x10^3/uL (140-400) Neutrophils (%) (Auto) 71 % (31-73) 78 % (31-73) Lymphocytes (%) (Auto) 19 % (24-48) 12 % (24-48) Monocytes (%) (Auto) 7 % (0-9) 9 % (0-9) Eosinophils (%) (Auto) 1 % (0-3) 0 % (0-3) Basophils (%) (Auto) 2 % (0-3) 1 % (0-3) Neutrophils # (Auto) 6.6 x10^3/uL (1.8-7.7) 9.3 x10^3/uL (1.8-7.7) Lymphocytes # (Auto) 1.7 x10^3/uL (1.0-4.8) 1.5 x10^3/uL (1.0-4.8) Monocytes # (Auto) 0.7 x10^3/uL (0.0-1.1) 1.1 x10^3/uL (0.0-1.1) Eosinophils # (Auto) 0.1 x10^3/uL (0.0-0.7) 0.0 x10^3/uL (0.0-0.7) Basophils # (Auto) 0.2 x10^3/uL (0.0-0.2) 0.1 x10^3/uL (0.0-0.2) Platelet Estimate Increased (ADEQUATE) Polychromasia Mod Hypochromasia Slight Anisocytosis Mod Ovalocytes Occ [place] Cells Occ Schistocytes Occ Sodium Level 132 mmol/L (136-145) 136 mmol/L (136-145) Potassium Level 5.8 mmol/L (3.5-5.1) 4.8 mmol/L (3.5-5.1) Chloride Level 102 mmol/L (98-107) 105 mmol/L (98-107) Carbon Dioxide Level 15 mmol/L (21-32) 16 mmol/L (21-32) Anion Gap 15 (6-14) 15 (6-14) Blood Urea Nitrogen 46 mg/dL (7-20) 45 mg/dL (7-20) Creatinine 1.8 mg/dL (0.6-1.0) 1.8 mg/dL (0.6-1.0) Estimated GFR (Cockcroft-Gault) 26.7 26.7 BUN/Creatinine Ratio 26 (6-20) 25 (6-20) Glucose Level 129 mg/dL (70-99) 77 mg/dL (70-99) Calcium Level 8.0 mg/dL (8.5-10.1) 7.8 mg/dL (8.5-10.1) Total Bilirubin 0.5 mg/dL (0.2-1.0) 0.4 mg/dL (0.2-1.0) Aspartate Amino Transf (AST/SGOT) 28 U/L (15-37) 15 U/L (15-37) Alanine Aminotransferase (ALT/SGPT) 13 U/L (14-59) 13 U/L (14-59) Alkaline Phosphatase 63 U/L (46-116) 63 U/L (46-116) Total Protein 5.4 g/dL (6.4-8.2) 5.0 g/dL (6.4-8.2) Albumin 2.7 g/dL (3.4-5.0) 2.6 g/dL (3.4-5.0) Albumin/Globulin Ratio 1.0 (1.0-1.7) 1.1 (1.0-1.7) Stool Occult Blood Negative (NEG) Thyroid Stimulating Hormone (TSH) 2.626 uIU/mL (0.358-3.74) Lactic Acid Level 4.6 mmol/L (0.4-2.0) Test 10/22/19 04:00 10/22/19 23:40 10/23/19 05:00 White Blood Count 12.2 x10^3/uL (4.0-11.0) 7.1 x10^3/uL (4.0-11.0) Red Blood Count 3.35 x10^6/uL (3.50-5.40) 2.98 x10^6/uL (3.50-5.40) Hemoglobin 8.5 g/dL (12.0-15.5) 7.3 g/dL (12.0-15.5) 7.6 g/dL (12.0-15.5) Hematocrit 26.4 % (36.0-47.0) 21.7 % (36.0-47.0) 23.6 % (36.0-47.0) Mean Corpuscular Volume 79 fL (79-100) 79 fL (79-100) Mean Corpuscular Hemoglobin 25 pg (25-35) 26 pg (25-35) Mean Corpuscular Hemoglobin Concent 32 g/dL (31-37) 34 g/dL (31-37) 32 g/dL (31-37) Red Cell Distribution Width 18.2 % (11.5-14.5) 18.2 % (11.5-14.5) Platelet Count 396 x10^3/uL (140-400) 345 x10^3/uL (140-400) Prothrombin Time 56.6 SEC (11.7-14.0) 23.4 SEC (11.7-14.0) Prothromb Time International Ratio 6.4 (0.8-1.1) 2.1 (0.8-1.1) Lactic Acid Level 2.8 mmol/L (0.4-2.0) Neutrophils (%) (Auto) 81 % (31-73) Lymphocytes (%) (Auto) 9 % (24-48) Monocytes (%) (Auto) 6 % (0-9) Eosinophils (%) (Auto) 3 % (0-3) Basophils (%) (Auto) 1 % (0-3) Neutrophils # (Auto) 5.8 x10^3/uL (1.8-7.7) Lymphocytes # (Auto) 0.6 x10^3/uL (1.0-4.8) Monocytes # (Auto) 0.4 x10^3/uL (0.0-1.1) Eosinophils # (Auto) 0.2 x10^3/uL (0.0-0.7) Basophils # (Auto) 0.1 x10^3/uL (0.0-0.2) Sodium Level 137 mmol/L (136-145) Potassium Level 4.3 mmol/L (3.5-5.1) Chloride Level 105 mmol/L (98-107) Carbon Dioxide Level 20 mmol/L (21-32) Anion Gap 12 (6-14) Blood Urea Nitrogen 30 mg/dL (7-20) Creatinine 1.1 mg/dL (0.6-1.0) Estimated GFR (Cockcroft-Gault) 47.1 BUN/Creatinine Ratio 27 (6-20) Glucose Level 81 mg/dL (70-99) Calcium Level 8.0 mg/dL (8.5-10.1) Total Bilirubin 1.1 mg/dL (0.2-1.0) Aspartate Amino Transf (AST/SGOT) 18 U/L (15-37) Alanine Aminotransferase (ALT/SGPT) 12 U/L (14-59) Alkaline Phosphatase 76 U/L (46-116) Total Protein 5.0 g/dL (6.4-8.2) Albumin 2.7 g/dL (3.4-5.0) Albumin/Globulin Ratio 1.2 (1.0-1.7) Laboratory Tests Test 10/22/19 23:40 10/23/19 05:00 Hemoglobin 7.3 g/dL (12.0-15.5) 7.6 g/dL (12.0-15.5) Hematocrit 21.7 % (36.0-47.0) 23.6 % (36.0-47.0) Mean Corpuscular Hemoglobin Concent 34 g/dL (31-37) 32 g/dL (31-37) White Blood Count 7.1 x10^3/uL (4.0-11.0) Red Blood Count 2.98 x10^6/uL (3.50-5.40) Mean Corpuscular Volume 79 fL (79-100) Mean Corpuscular Hemoglobin 26 pg (25-35) Red Cell Distribution Width 18.2 % (11.5-14.5) Platelet Count 345 x10^3/uL (140-400) Neutrophils (%) (Auto) 81 % (31-73) Lymphocytes (%) (Auto) 9 % (24-48) Monocytes (%) (Auto) 6 % (0-9) Eosinophils (%) (Auto) 3 % (0-3) Basophils (%) (Auto) 1 % (0-3) Neutrophils # (Auto) 5.8 x10^3/uL (1.8-7.7) Lymphocytes # (Auto) 0.6 x10^3/uL (1.0-4.8) Monocytes # (Auto) 0.4 x10^3/uL (0.0-1.1) Eosinophils # (Auto) 0.2 x10^3/uL (0.0-0.7) Basophils # (Auto) 0.1 x10^3/uL (0.0-0.2) Prothrombin Time 23.4 SEC (11.7-14.0) Prothromb Time International Ratio 2.1 (0.8-1.1) Sodium Level 137 mmol/L (136-145) Potassium Level 4.3 mmol/L (3.5-5.1) Chloride Level 105 mmol/L (98-107) Carbon Dioxide Level 20 mmol/L (21-32) Anion Gap 12 (6-14) Blood Urea Nitrogen 30 mg/dL (7-20) Creatinine 1.1 mg/dL (0.6-1.0) Estimated GFR (Cockcroft-Gault) 47.1 BUN/Creatinine Ratio 27 (6-20) Glucose Level 81 mg/dL (70-99) Calcium Level 8.0 mg/dL (8.5-10.1) Total Bilirubin 1.1 mg/dL (0.2-1.0) Aspartate Amino Transf (AST/SGOT) 18 U/L (15-37) Alanine Aminotransferase (ALT/SGPT) 12 U/L (14-59) Alkaline Phosphatase 76 U/L (46-116) Total Protein 5.0 g/dL (6.4-8.2) Albumin 2.7 g/dL (3.4-5.0) Albumin/Globulin Ratio 1.2 (1.0-1.7) Brief Hospital Course Ms Puentes is a 84 yo female admitted for complains of abdominal pain and weakness. Pt does not speak Englinsh and family members speaks limited Khmer. Noting her medication that was brought, she takes pradaxa and verapamil for AFIB. She also takes losartan. Looking at her pill bottle it appears she may have been rivaroxiban in the past. It is unclear if end up taking both. She is a poor historian. Denies any chest pain and no SOA but complains of abdominal pain and further revealed significant anemia at 4.6 Hgb requiring 2U PRBC. She does have hx of GI bleed and PUD unclear where. Positive for vomiting but does have black stools. Denies any past hx of CAD, CVA. 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 Admission Labs noted Hgb 4.6 (now 8.5 s/p transfusions), MCV 78, RDW 22.6, lactic acid 4.6 (now 2.8), BUN 46, Cr 1.8. Daughter says stools have looked black. Additionally reports decreased appetite and weight loss. H/o anemia requiring blood transfusion in [place] in 07/2019. EGD at that time w/ ulcer. Daughter says no longer taking anything for ulcer, but later says she takes omeprazole for pain. Denies use of blood thinners, however medications w/ nurse - include Pradaxa. Seen by cardiology and GI. Hb stabilized after tranfusion, iron deficient. She feels weak, but wishes to leave the hospital. ECHO The left ventricle is normal size. The left ventricular systolic function is normal and the ejection fraction is within normal range. The Ejection Fraction is 50-55%. There is borderline to mild concentric left ventricular hypertrophy. Doppler and Color Flow revealed mild aortic regurgitation. There is no significant aortic valvular stenosis. Doppler and Color-flow revealed mild to moderate mitral regurgitation. Doppler and Color Flow revealed mild to moderate tricuspid regurgitation with an estimated PAP of 42 mmHg. Problem list: Acute blood loss anemia -initially 4.6 and better post 2U PRBC GI bleed: hx of PUD with continued use of pradaxa Elevated INR AFIB - HR in the 100s Chronic vs paroxysmal. 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 HTN HLD ELIZABETH - likely vasomotor nephropathy due to volume depletion Hyperkalemia - due to ELIZABETH Lactic acidosis -likely due to severe anemia and ELIZABETH Moderate-severe protein calorie malnutrition Greater than 30 minutes spent on d/c Discharge Information Condition at Discharge: Improved Follow Up: Weeks (1) Disposition/Orders: D/C to Home Scheduled Ascorbic Acid (Vitamin C) 500 Mg Capsule.er, 1 CAP PO DAILY for HIPOLITO for 30 Days, #30 Ref 11 Prescribed by: MAUREEN MARKHAM MD on 10/23/19 1143 Atorvastatin Calcium (Atorvastatin Calcium) 10 Mg Tablet, 10 MG PO DAILY for FOR CHOLESTEROL, #30 Ref 0 (Reported) Entered as Reported by: KINGSLEY COELLO RN on 10/23/19 000 Last Action: Continued on 10/23/1928 by KINGSLEY COELLO RN Ferrous Sulfate (Iron) 325 Mg Tablet, 1 TAB PO BID for Iron def anemia for 30 Days, #60 Ref 11 Prescribed by: MAUREEN MARKHAM MD on 10/23/19 1142 Furosemide (Furosemide) 40 Mg Tablet, 1 TAB PO DAILY for swelling and edema, #30 Ref 5 (Reported) Entered as Reported by: KINGSLEY COELLO RN on 10/23/1920 Last Action: Continued on 10/23/1928 by KINGSLEY COELLO RN Losartan Potassium (Losartan Potassium) 50 Mg Tablet, 50 MG PO DAILY for HYPERTENSION, (Reported) Entered as Reported by: KINGSLEY COELLO RN on 10/23/198 Last Action: New Order on 10/23/198 by KINGSLEY COELLO RN Pantoprazole Sodium (Protonix ) 40 Mg Tablet.dr, 40 MG PO DAILYAC for GERD for 30 Days, #30 Ref 2 Prescribed by: MAUREEN MARKHAM MD on 10/23/19 1142 Verapamil Hcl (Verapamil Er) 240 Mg Cap24h.pel, 100 MG PO BID for uncontrolled A-fib, (Reported) Entered as Reported by: KINGSLEY COELLO RN on 10/23/1913 Last Action: Converted on 10/23/1928 by KINGSLEY COELLO RN Discontinued Medications Omeprazole (Omeprazole) 40 Mg Capsule.dr, 40 MG PO DAILY for chronic stomach ulcers , (Reported) Entered as Reported by: KINGSLEY COELLO RN on 10/23/1916 Last Action: Edited on 10/23/1928 by WALTER CHRISTIANSON CHRISTOPHER S MD Oct 23, 2019 11:46
--- NOTE | 2019-10-23 13:25 | PDOC ---
PROGRESS NOTES Subjective Subjective Denied any chest pain or shortness of breath Objective Objective Vital Signs Date Time Temp Pulse Resp B/P (MAP) Pulse Ox O2 Delivery O2 Flow Rate FiO2 10/23/19 13:00 Room Air 10/23/19 10:45 98.2 79 18 113/53 (73) 99 98.2 10/23/19 08:00 2.0 Intake and Output 10/23/19 07:00 Intake Total 120 ml Output Total 1680 ml Balance -1560 ml Blood Product 120 ml Output Urine Total 1680 ml Physical Exam Abdomen: Soft, No tenderness Heart: Other (AFIB) Extremities: No cyanosis, No edema General: Alert, Oriented X3, Cooperative, No acute distress HEENT: Atraumatic, Mucous membr. moist/pink Lungs: Other (diminished bases) Neuro: Normal speech, Sensation intact Psych/Mental Status: Mental status NL, Mood NL Skin: No breakdown, No significant lesion Assessment Assessment 1. Acute GI bleed: hx of PUD: Continue workup per gastroenterology team 2. Severe anemia: s/p 2U PRBC transfusion 3. AFIB: Persistent, rate controlled. Patient poor candidate for long-term anticoagulation. Plan outpatient referral for possible left atrial appendage closure 4. PPM in situ: Clinically stable 5. HTN: Well-controlled 6. HLP statins 7. ELIZABETH/hyperkalemia: Improved Okay for discharge from cardiac standpoint Plan Plan of Care Problems Medical Problems: (1) ELIZABETH (acute kidney injury) Status: Acute (2) Hyperkalemia Status: Acute (3) Hypotension Status: Acute (4) Lactic acid acidosis Status: Acute Comment Review of Relevant I have reviewed the following items virginie (where applicable) has been applied. Labs Laboratory Tests Test 10/22/19 23:40 10/23/19 05:00 Hemoglobin 7.3 g/dL (12.0-15.5) 7.6 g/dL (12.0-15.5) Hematocrit 21.7 % (36.0-47.0) 23.6 % (36.0-47.0) Mean Corpuscular Hemoglobin Concent 34 g/dL (31-37) 32 g/dL (31-37) White Blood Count 7.1 x10^3/uL (4.0-11.0) Red Blood Count 2.98 x10^6/uL (3.50-5.40) Mean Corpuscular Volume 79 fL (79-100) Mean Corpuscular Hemoglobin 26 pg (25-35) Red Cell Distribution Width 18.2 % (11.5-14.5) Platelet Count 345 x10^3/uL (140-400) Neutrophils (%) (Auto) 81 % (31-73) Lymphocytes (%) (Auto) 9 % (24-48) Monocytes (%) (Auto) 6 % (0-9) Eosinophils (%) (Auto) 3 % (0-3) Basophils (%) (Auto) 1 % (0-3) Neutrophils # (Auto) 5.8 x10^3/uL (1.8-7.7) Lymphocytes # (Auto) 0.6 x10^3/uL (1.0-4.8) Monocytes # (Auto) 0.4 x10^3/uL (0.0-1.1) Eosinophils # (Auto) 0.2 x10^3/uL (0.0-0.7) Basophils # (Auto) 0.1 x10^3/uL (0.0-0.2) Prothrombin Time 23.4 SEC (11.7-14.0) Prothromb Time International Ratio 2.1 (0.8-1.1) Sodium Level 137 mmol/L (136-145) Potassium Level 4.3 mmol/L (3.5-5.1) Chloride Level 105 mmol/L (98-107) Carbon Dioxide Level 20 mmol/L (21-32) Anion Gap 12 (6-14) Blood Urea Nitrogen 30 mg/dL (7-20) Creatinine 1.1 mg/dL (0.6-1.0) Estimated GFR (Cockcroft-Gault) 47.1 BUN/Creatinine Ratio 27 (6-20) Glucose Level 81 mg/dL (70-99) Calcium Level 8.0 mg/dL (8.5-10.1) Total Bilirubin 1.1 mg/dL (0.2-1.0) Aspartate Amino Transf (AST/SGOT) 18 U/L (15-37) Alanine Aminotransferase (ALT/SGPT) 12 U/L (14-59) Alkaline Phosphatase 76 U/L (46-116) Total Protein 5.0 g/dL (6.4-8.2) Albumin 2.7 g/dL (3.4-5.0) Albumin/Globulin Ratio 1.2 (1.0-1.7) Medications Current Medications Atorvastatin Calcium (Lipitor) 10 mg HS PO ; Start 10/23/19 at 21:00 Digoxin (Lanoxin) 250 mcg 1X PRN PO TACHYCARDIA; Start 10/23/19 at 05:15; Stop 10/23/19 at 07:00; Status DC Digoxin (Lanoxin) 250 mcg DAILY PO ; Start 10/23/19 at 09:00; Stop 10/23/19 at 05:16; Status DC Furosemide (Lasix) 40 mg DAILY PO ; Start 10/23/19 at 09:00; Stop 10/23/19 at 05:06; Status DC Verapamil HCl (Calan Sr) 120 mg BID PO Last administered on 10/23/19at 09:48; Start 10/23/19 at 00:30 Vitals/I & O Vital Sign - Last 24 Hours 10/22/19 10/22/19 10/22/19 10/22/19 13:28 13:45 14:00 14:00 Temp 98.0 98.0 Pulse 104 100 100 100 Resp 16 16 16 16 B/P (MAP) 105/67 101/62 102/42 (62) 102/72 Pulse Ox 100 O2 Delivery Room Air 10/22/19 10/22/19 10/22/19 10/22/19 14:15 14:57 15:00 15:14 Temp 98.2 98.2 97.9 98.2 98.2 97.9 Pulse 123 66 94 94 Resp 16 16 16 16 B/P (MAP) 102/72 108/64 102/63 (76) 101/53 Pulse Ox 100 O2 Delivery Room Air 10/22/19 10/22/19 10/22/19 10/22/19 15:30 15:45 16:00 16:00 Temp 97.9 97.9 Pulse 108 92 94 Resp 16 16 16 B/P (MAP) 101/70 104/58 102/51 O2 Delivery Room Air 10/22/19 10/22/19 10/22/19 10/22/19 16:00 16:15 16:30 17:00 Temp 98.2 98.2 98.2 98.2 Pulse 94 102 102 100 Resp 16 20 16 16 B/P (MAP) 102/51 (68) 104/65 113/67 102/65 (77) Pulse Ox 100 100 O2 Delivery Room Air Room Air 10/22/19 10/22/19 10/22/19 10/23/19 20:00 20:24 23:10 00:54 Temp 98.4 97.3 98.4 97.3 Pulse 79 97 120 Resp 16 16 B/P (MAP) 109/57 (74) 114/67 (83) 114/67 Pulse Ox 91 93 O2 Delivery Room Air Room Air Nasal Cannula O2 Flow Rate 2.0 10/23/19 10/23/19 10/23/19 10/23/19 03:09 07:00 08:00 09:48 Temp 98.0 98.1 98.0 98.1 Pulse 93 79 79 Resp 16 18 B/P (MAP) 114/58 (76) 93/51 (65) 93/51 Pulse Ox 98 97 O2 Delivery Room Air Room Air Room Air O2 Flow Rate 2.0 2.0 10/23/19 10/23/19 10/23/19 10/23/19 10:45 11:00 12:20 13:00 Temp 98.2 98.2 Pulse 79 Resp 18 B/P (MAP) 113/53 (73) Pulse Ox 99 O2 Delivery Room Air Room Air Room Air Room Air Intake and Output 10/22/19 10/22/19 10/23/19 15:00 23:00 07:00 Intake Total 120 ml Output Total 410 ml 770 ml 500 ml Balance -290 ml -770 ml -500 ml BHARAT GUALLPA MD Oct 23, 2019 13:25
--- NOTE | 2019-10-23 14:16 | NUR ---
pt was discharged home with family and self care. pt and most of the family does not speak German, was able to give discharge instructions over the phone to one family member that understood the situation. she was given three scripts for iron, protonix, and vit C ....pt was wheeled down to the main entrance at 14:15 today 10/23/2019. Jayce Hayes RN
[2019-10-23] MEDS ORDERED: ATORVASTATIN CALCIUM 10 MG TABLET. PO SCH (21:00)
== END 2019-10-23 14:24 | disposition home or self-care (01) | DRG 377 ==
LOC: ER 19:28 → 1 WEST ICU 23:42 → 6 SOUTH 10-22 17:42
PROVIDERS: ADMIT Internal Medicine; ATTEND Internal Medicine
PROC: 30233N1 Transfusion of Nonautologous Red Blood Cells into Peripheral Vein, Percutaneous Approach (ICD-10-PCS; 2019-10-21)
PROC: 30233K1 Transfusion of Nonautologous Frozen Plasma into Peripheral Vein, Percutaneous Approach (ICD-10-PCS; principal; 2019-10-22)
DX: K92.2 Gastrointestinal hemorrhage, unspecified (principal); N17.0 Acute kidney failure with tubular necrosis; E43 Unspecified severe protein-calorie malnutrition; D62 Acute posthemorrhagic anemia; E87.2 Acidosis; E87.5 Hyperkalemia; I95.9 Hypotension, unspecified; I48.91 Unspecified atrial fibrillation; E78.5 Hyperlipidemia, unspecified; K21.9 Gastro-esophageal reflux disease without esophagitis; M19.90 Unspecified osteoarthritis, unspecified site; E86.9 Volume depletion, unspecified; I10 Essential (primary) hypertension; Z95.0 Presence of cardiac pacemaker; Z87.11 Personal history of peptic ulcer disease; Z79.01 Long term (current) use of anticoagulants; Z90.49 Acquired absence of other specified parts of digestive tract
CPT/HCPCS: 36415; 36556; 51702; 71045; 74176; 80053; 82274; 83605; 84443; 85014; 85018; 85025; 85027; 85610; 86850; 86900; 86901; 86920; 86927; 93005; 93306; 96374; 96375; 99292; C9113; J0610; J1160; J1815; J1940; J2270; J3430; J7030; J7042; P9016; P9017; 99291-25; G0378